=== PATIENT | female | born 1970 | race Caucasian/White ===

== ENCOUNTER → 2018-09-20 16:22 | Outpatient (CLI) | payer BC, SELFPAY ==
[2018-09-26 09:13] LABS: HPV Reflexed? NOT INDICATED
== END ==
PROVIDERS: Visit Provider Obstetrics & Gynecology
DX: Z12.4 Encounter for screening for malignant neoplasm of cervix (principal)
CPT/HCPCS: 88175; G0145

== ENCOUNTER 2023-08-08 12:33 | Emergency (ER) | payer OTHER, SELFPAY ==
[2023-08-08 12:34] VITALS: BP 132/78; PULSE 82; RESP 18; TEMP 36.3; O2SAT 99; BMI 40.2
--- NOTE | 2023-08-08 12:59 | US_ITS ---
HISTORY: RUQ PAIN, NAUSEA AND VOMITING. TECHNIQUE: Prakash scale and color doppler imaging was performed of the right upper quadrant. 108 images. COMPARISON: None. FINDINGS: LIVER: 20.9 cm in length. Increased echogenicity without focal lesion demonstrated. No intrahepatic ductal dilatation. MAIN PORTAL VEIN: Patent. COMMON BILE DUCT: 3 mm in diameter. GALLBLADDER: No gallstones. 2 mm wall thickness, within normal limits. No pericholecystic fluid. Sonographic Lora sign negative. PANCREAS: Not well visualized due to overlying bowel gas. RIGHT KIDNEY: 13.2 cm in length with a cortical thickness of 1.3 cm. No hydronephrosis or gross renal mass demonstrated. US/Gallbladder IMPRESSION: Hepatic steatosis with hepatomegaly. No sonographic evidence of cholelithiasis. Electronically Signed: Catalina Canada MD at 14:12 EDT ,
--- NOTE | 2023-08-08 12:59 | EX.ED.DYSGE1 ---
HPI <MARTY Macdonald - Last Filed: 08/08/23 18:17> History of Present Illness Chief Complaint: Abd Pain Narrative Narrative: Patient presenting today due to nausea, vomiting, and abdominal pain that she has had since . She reports that she feels dehydrated and is unable to keep any food or fluids down. She reports that she has been getting spasms in her upper abdomen, especially at night. She reports that she had a temperature of 100.3 ?F this morning that was obtained via a forehead thermometer, but otherwise has been afebrile. She denies a history of any abdominal surgery. She reports that she had one episode of a white stool on . She reports a history of fatty liver disease. She did have an ultrasound of her RUQ performed in February 2023 which showed fatty liver and no gallstones. PFSH <MARTY Macdonald - Last Filed: 08/08/23 18:17> PFSH Home Medications dicyclomine 10 mg capsule 10 mg PO TID 5 days #15 caps 08/08/23 [Rx Last Taken Unknown] ondansetron 4 mg disintegrating tablet 4 mg PO Q8H PRN PRN Nausea #10 tabs 08/08/23 [Rx Last Taken Unknown] Allergy/AdvReac Type Severity Reaction Status Date / Time bee venom protein (honey bee) Allergy Severe Anaphylaxis Verified 08/08/23 12:38 Penicillins Allergy Unknown PT UNABLE Verified 08/08/23 12:38 TO RESPOND-NEEDS F/U tetracycline Allergy Unknown NEEDS Verified 08/08/23 12:38 FOLLOW-UP Social History Smoking Status: Never smoker ROS <MARTY Macdonald - Last Filed: 08/08/23 18:17> ROS ED Constitutional Constitutional ED: Reports fever(s); Denies chills Cardiovascular Cardiovascular: Denies chest pain Respiratory/Chest Respiratory/Chest: Denies cough or dyspnea Gastrointestinal Gastrointestinal: Reports abdominal pain, nausea and vomiting; Denies diarrhea or hematemesis Genitourinary Genitourinary ED: Denies dysuria, hematuria or urinary urgency Musculoskeletal Musculoskeletal: Denies arthralgias or myalgias Integumentary Denies rash Neurologic Neurologic: Denies weakness EXAM <MARTY Macdonald - Last Filed: 08/08/23 18:17> Physical Exam Const Vital Signs: 08/08/23 12:34 08/08/23 15:30 08/08/23 16:22 Temperature 97.4 F L Temperature Source Temporal Pulse Rate 82 83 62 Respiratory Rate 18 16 15 Blood Pressure 132/78 H 119/91 H 128/75 H Blood Pressure Mean 96 100 Pulse Ox 99 98 98 Oxygen Delivery Method Room Air Room Air Positive well nourished, well developed and no apparent distress General Appearance ED: well developed HEENT Reports normocephalic and head/scalp atraumatic Mouth ED: Yes moist mucous membranes normal Eyes PERRL and EOMs intact bilaterally Neck full ROM and supple Chest Wall inspection of chest normal Resp normal respiratory effort and clear to auscultation bilaterally Cardio regular rate and regular rhythm GI non-distended and no masses GI Narrative: right upper quadrant tenderness to palpation, no rigidity or guarding, positive Lora sign, no peritoneal signs, negative McBurney's point tenderness Palpation: soft Back/Spine normal ROM and normal to inspection Extremity normal to inspection and full ROM Neuro oriented x3, CN's II-XII intact bilaterally, moves all extremities, no focal motor deficits and no sensory deficits noted Sensorium / Orientation: awake and alert Psych mental status grossly normal and thought process normal Skin no rashes or lesions noted and no wounds <Dr. Myke Castro MD - Last Filed: 08/08/23 13:10> Physical Exam Const Vital Signs: 08/08/23 12:34 08/08/23 15:30 08/08/23 16:22 Temperature 97.4 F L Temperature Source Temporal Pulse Rate 82 83 62 Respiratory Rate 18 16 15 Blood Pressure 132/78 H 119/91 H 128/75 H Blood Pressure Mean 96 100 Pulse Ox 99 98 98 Oxygen Delivery Method Room Air Room Air MDM <MARTY Macdonald - Last Filed: 08/08/23 18:17> MDM MDM Narrative Medical decision making narrative: Patient presenting today with pain across her upper abdomen that has been intermittent since as well as nausea and vomiting. She is well-appearing and in no acute distress, she is nontoxic-appearing, vitals are unremarkable. She had an episode of light stool on . She has a history of fatty liver. She had a recent ultrasound of her right upper quadrant in February 2023 which showed fatty liver, no gallstones were seen. She does have slight right upper quadrant tenderness to palpation here. RUQ ultrasound will be obtained. Labs will be obtained to rule out leukocytosis, anemia, electrolyte abnormality, hepatobiliary etiology, and UTI. She will be given IV fluids, Zofran, and Toradol. On reexamination she reports some improvement of her symptoms, she was given a p.o. challenge and was able to tolerate fluids and crackers. She reports that she feels hungry and would like to go home and eat something. Labs overall are unremarkable aside from slightly elevated liver enzymes AST 47, ALT 67. Normal total bilirubin. UA is contaminated, she is not having any urinary symptoms, elevated urinary ketones. Ultrasound shows fatty liver with hepatomegaly, no evidence of cholelithiasis. She reports that she has had 2 other episodes of similar symptoms occurring in the past year, I did give her a referral for Dr. Frank. She will be given a prescription for Zofran and Bentyl, she will be discharged home in stable condition and is comfortable with plan. Lab Data Attestation: I reviewed the patient's lab results. Labs: Laboratory Results - last 24 hr 08/08/23 08/08/23 13:05 15:35 WBC 7.9 RBC 4.93 Hgb 13.0 Hct 40.7 MCV 82.6 MCH 26.4 L MCHC 31.9 L RDW Std Deviation 42.5 RDW Coeff of Jayashree 14.2 Plt Count 428 MPV 8.4 Immature Gran % (Auto) 0.100 Neut % (Auto) 71.8 H Lymph % (Auto) 20.2 Lander % (Auto) 6.2 Eos % (Auto) 0.6 Baso % (Auto) 1.1 H Absolute Neuts (auto) 5.6 Absolute Lymphs (auto) 1.59 Nucleated RBC % 0 Sodium 138 Potassium 3.5 Chloride 106 Carbon Dioxide 26.0 Anion Gap 6 BUN 17 Creatinine 0.96 Estim Creat Clear Calc 54.83 Est GFR (MDRD) Af Amer 79 Est GFR (MDRD) Non-Af 65 BUN/Creatinine Ratio 17.7 Glucose 104 Calcium 9.1 Total Bilirubin 0.50 AST 47 H ALT 67 H Alkaline Phosphatase 65 Total Protein 8.0 Albumin 4.1 Globulin 3.9 Albumin/Globulin Ratio 1.1 Lipase 41 Urine Color Yellow Urine Clarity Cloudy Urine pH 6.0 Ur Specific [place] 1.025 Urine Protein 30 H Urine Glucose (UA) Normal Urine Ketones 150 A* Urine Occult Blood 25 H Urine Nitrite Negative Urine Bilirubin 1 H Urine Urobilinogen 1 H Ur Leukocyte Esterase 500 H Urine RBC 5-10 SEEN Urine WBC 10-25 SEEN Ur Squamous Epith Cells 0 SEEN Urine Bacteria 2+ Urine Mucus 0 SEEN Radiography Diagnostic Testing: Clinical Impression(s) from Imaging Studies Gallbladder Ultrasound 08/08/23 12:59 IMPRESSION: Hepatic steatosis with hepatomegaly. No sonographic evidence of cholelithiasis. Electronically Signed: Catalina Canada MD at 14:12 EDT , <Dr. Myke Castro MD - Last Filed: 08/08/23 13:10> [facility] Lab Data Labs: Laboratory Results - last 24 hr 08/08/23 08/08/23 13:05 15:35 WBC 7.9 RBC 4.93 Hgb 13.0 Hct 40.7 MCV 82.6 MCH 26.4 L MCHC 31.9 L RDW Std Deviation 42.5 RDW Coeff of Jayashree 14.2 Plt Count 428 MPV 8.4 Immature Gran % (Auto) 0.100 Neut % (Auto) 71.8 H Lymph % (Auto) 20.2 Lander % (Auto) 6.2 Eos % (Auto) 0.6 Baso % (Auto) 1.1 H Absolute Neuts (auto) 5.6 Absolute Lymphs (auto) 1.59 Nucleated RBC % 0 Sodium 138 Potassium 3.5 Chloride 106 Carbon Dioxide 26.0 Anion Gap 6 BUN 17 Creatinine 0.96 Estim Creat Clear Calc 54.83 Est GFR (MDRD) Af Amer 79 Est GFR (MDRD) Non-Af 65 BUN/Creatinine Ratio 17.7 Glucose 104 Calcium 9.1 Total Bilirubin 0.50 AST 47 H ALT 67 H Alkaline Phosphatase 65 Total Protein 8.0 Albumin 4.1 Globulin 3.9 Albumin/Globulin Ratio 1.1 Lipase 41 Urine Color Yellow Urine Clarity Cloudy Urine pH 6.0 Ur Specific [place] 1.025 Urine Protein 30 H Urine Glucose (UA) Normal Urine Ketones 150 A* Urine Occult Blood 25 H Urine Nitrite Negative Urine Bilirubin 1 H Urine Urobilinogen 1 H Ur Leukocyte Esterase 500 H Urine RBC 5-10 SEEN Urine WBC 10-25 SEEN Ur Squamous Epith Cells 0 SEEN Urine Bacteria 2+ Urine Mucus 0 SEEN Radiography Diagnostic Testing: Clinical Impression(s) from Imaging Studies Gallbladder Ultrasound 08/08/23 12:59 IMPRESSION: Hepatic steatosis with hepatomegaly. No sonographic evidence of cholelithiasis. Electronically Signed: Catalina Canada MD at 14:12 EDT , Treatment and Re-Evaluation Comments:: I have personally performed a face to face assessment of the patient and have reviewed the AUBRIE Note. I performed a substantive portion of the visit including all aspects of the following. My arevalo findings include: History is patient had an acholic stool, followed by upper abdominal discomfort without radiation, nausea, vomiting, now no bowel movement since not able to eat or keep anything down liquid-pollock. No fevers or chills. No jaundice or itching. No confusion. No history of any abdominal surgeries. Exam is well-appearing in no distress, tender throughout upper abdomen worse on the right equivocal Lora's. No guarding or rebound tenderness. No lower abdominal tenderness. Medical Decison Making labs including liver enzymes, ultrasound right upper quadrant, meds, fluids, reevaluate. Other additions or changes: [None] Discharge Plan Triage Chief Complaint: Abd Pain ED Midlevel Provider: Heaven Bradley ED Provider: Myke Castro Dx/Rx/DC Orders Clinical Impression: Fatty liver, Nausea & vomiting, Abdominal pain Instructions: Nonalcoholic Fatty Liver ..., ED Vomiting (Adult) Prescriptions: New ondansetron 4 mg tablet,disintegrating 4 mg PO Q8H PRN PRN (Reason: Nausea) Qty: 10 0RF dicyclomine 10 mg capsule 10 mg PO TID 5 Days Qty: 15 0RF Primary Care Provider: Connie Boss Referrals: Connie Boss MD [Primary Care Provider] - 3-5 Days Topher Frank DO [Med Staff - Active Staff] - Activity Restrictions/Additional Instructions: Please follow-up with your PCP, return for any worsening of your symptoms. Stay well-hydrated. Disposition Disposition: Home, Self Care Discharge Date/Time: 08/08/23 16:23
[2023-08-08] MEDS: Ondansetron 4 MG/2 ML Vial IV (13:09)
[2023-08-08] MEDS: 0.9% Normal Saline (1000mL) 1,000 ML 1000 ML IV (13:10)
[2023-08-08] MEDS: Ketorolac 15 MG/ML Vial IV (13:10)
[2023-08-08 13:21] LABS: Absolute Lymphocyte Count 1.59 X10^3/uL (0.83-4.51); Absolute Neutrophil Count 5.6 X10^3/uL (2.0-7.7); Basophil# 0.09 X10^3/uL; Basophil% 1.1 % (0-1); Eosinophil# 0.05 X10^3/uL; Eosinophils% 0.6 % (0-5); Hematocrit 40.7 % (37-47); Lymphocyte # 1.59 X10^3/ul (0.83-4.51); Lymphocyte % 20.2 % (19-41); Mean Corp Hgb Conc 31.9 g/dL (32-36); Mean Corpuscular Hgb 26.4 pg (27.0-32.0); Mean Corpuscular Volume 82.6 fL (81-99); Mean Platelet Vol. 8.4 fl (6.2-12.0); Monocyte# 0.49 X10^3/uL; Monocyte% 6.2 % (0-10); NRBC Flagged by Analyzer 0 % (0-5); Neutrophil # 5.63 X10^3/uL (2.7-7.7); Neutrophil % 71.8 % (47-70); Platelet Count 428 K/mm3 (150-450); RBC Distribution Width CV 14.2 % (11.6-14.6); RBC Distribution Width SD 42.5 fl (35.1-43.9); Red Blood Count 4.93 M/mm3 (4.2-5.4); White Blood Count 7.9 K/mm3 (4.4-11.0)
[2023-08-08 13:36] LABS: ALB/GLOB Ratio 1.1 RATIO (0.9-2.4); AST(SGOT) 47 U/L (15-37); Alanine Aminotransfer ALT/SGPT 67 U/L (13-56); Albumin, Serum 4.1 g/dL (3.2-5.0); Alkaline Phosphatase 65 U/L (45-117); Anion Gap 6 (5-15); BUN 17 mg/dL (7-18); BUN/Creat Ratio 17.7 RATIO (10-20); Calcium,Total 9.1 mg/dL (8.5-10.1); Chloride 106 mmol/L (98-107); Creatinine, Serum 0.96 mg/dL (0.55-1.02); EST Glomerular Filtration Rate 65 mL/min (>60); Est Glom Filt Rate - Afr Amer 79 mL/min (>60); Estimated Creatinine Clearance 54.83 ml/min; Globulin 3.9 g/dL (2.2-4.2); Glucose 104 mg/dL (74-106); Lipase 41 U/L (13-75); Potassium 3.5 mmol/L (3.5-5.1); Sodium Level 138 mmol/L (136-145)
[2023-08-08 15:30] VITALS: BP 119/91; PULSE 83; RESP 16; O2SAT 98
[2023-08-08 15:42] LABS: Color, Urine Yellow (Yellow); Glucose, Dipstick Normal (Normal); Leukocyte Esterase-Dipstick 500 /ul (Negative); Mucous, Urine 0 SEEN /hpf (<or=2+); Nitrite-Dipstick Negative (Negative); Occult Blood-Urine 25 /ul (Negative); Protein-Dipstick 30 mg/dl (Negative); Specific Gravity, Urine 1.025 (1.002-1.030); Squamous Epithelial Cells - UA 0 SEEN /hpf (5-10); Urine Clarity Cloudy (Clear); Urine Urobilinogen 1 mg/dl (Normal)
[2023-08-08 15:49] LABS: Ketone-Dipstick 150 mg/dl (Negative); Urine Bilirubin Dipstick 1 mg/dL (Negative)
[2023-08-08 16:04] LABS: White Blood Cells 10-25 SEEN /hpf (0-5)
[2023-08-08 16:05] LABS: Bacteria 2+ /hpf (None Seen); Red Blood Cells-Urine 5-10 SEEN /hpf (0-5)
[2023-08-08 16:22] VITALS: BP 128/75; PULSE 62; RESP 15; O2SAT 98
== END 2023-08-08 16:23 | disposition home or self-care (01) ==
PROVIDERS: Physician Assistant; Emergency Provider Emergency Medicine; PCP Internal Medicine; Visit Provider Emergency Medicine
DX: R10.9 Unspecified abdominal pain (principal); R11.2 Nausea with vomiting, unspecified; K76.0 Fatty (change of) liver, not elsewhere classified; Z79.899 Other long term (current) drug therapy
CPT/HCPCS: 76705; 80053; 81001; 83690; 85025; 96361; 96374; 96375; 99283; J7030; A4216; J2405

== ENCOUNTER → 2024-02-22 | Outpatient (CLI) | payer OTHER, SELFPAY ==
[2024-02-25 16:11] LABS: HPV APTIMA, High Risk Negative (Negative)
== END | disposition home or self-care (01) ==
LOC: LABSPEC 13:50
PROVIDERS: PCP Internal Medicine; Referring Provider Obstetrics & Gynecology; Visit Provider Obstetrics & Gynecology
DX: Z12.4 Encounter for screening for malignant neoplasm of cervix (principal)
CPT/HCPCS: 87624; 88175; G0145

== ENCOUNTER → 2024-03-11 | Outpatient (CLI) | payer OTHER, SELFPAY ==
--- NOTE | 2024-03-11 09:03 | BI_ITS ---
MAMMOGRAPHY - BILATERAL SCREENING REASON FOR EXAM: Female, 53 years old. Routine annual screening examination. PERTINENT HISTORY: Non-contributory. TECHNIQUE: Digital bilateral breast marija (3D mammographic acquisition) in the CC and MLO projections. 2-D mediolateral oblique (MLO) and craniocaudad (CC) views of both breasts were obtained. CAD: Full Field Digital Mammography with Computer Added Detection was performed. COMPARISON: Comparison is made with prior study dated February 20, 2016. FINDINGS: Breast Composition: The breasts are almost entirely fatty. There are no dominant masses or suspicious calcifications. No other significant abnormalities are identified. There has been no significant change since the prior study. BI/SCRN MAMM (CAD)W/MARIJA BILAT IMPRESSION: Stable bilateral screening mammogram. Yearly follow-up mammogram recommended. (A) ASSESSMENT CATEGORY: BIRADS Category 1: Negative. A letter regarding these results will be sent to the patient by the facility within 30 days. Approximately 10% of breast cancers are not detected by mammography. A normal mammogram should not delay biopsy of a clinically suspicious abnormality. [id number] Electronically Signed: Johnny Cramer MD at 10:08 EDT ,
== END | disposition home or self-care (01) ==
LOC: OPBI 09:02
PROVIDERS: PCP Internal Medicine; Referring Provider Obstetrics & Gynecology; Visit Provider Obstetrics & Gynecology
DX: Z12.31 Encounter for screening mammogram for malignant neoplasm of breast (principal)
CPT/HCPCS: 77063; 77067

== ENCOUNTER 2025-08-05 12:42 | Emergency (ER) | payer OTHER, SELFPAY ==
--- OUTSIDE RECORDS SUMMARY | 2025-08-05 11:55 | XMS RPT_ITS ---
Author Name Auto Generated Organization [facility] Care Team Providers Care Job Counselor Name Role Phone OLDER, MORENA Referring Unavailable GANTA, HUDSON Primary Care Unavailable IVANNA NICHOLSON Attending Unavailable GANTA, HUDSON Primary Care Unavailable OLDER, MORENA Referring Unavailable GANTA, HUDSON Attending Unavailable GANTA, HUDSON Primary Care Unavailable GANTA, HUDSON Referring Unavailable GANTA, HUDSON Primary Care Unavailable GANTA, HUDSON Attending Unavailable GANTA, HUDSON Primary Care Unavailable OLDER, MORENA Referring Unavailable GANTA, HUDSON Primary Care Unavailable MOHAN DE JESUS Attending Unavailable GANTA, HUDSON Primary Care Unavailable LACI MILLER Attending Unavailable GANTA, HUDSON Primary Care Unavailable OLDER, MORENA Referring Unavailable GANTA, HUDSON Primary Care Unavailable OLDER, MORENA Referring Unavailable GANTA, HUDSON Primary Care Unavailable OLDER, MORENA Referring Unavailable PROBLEMS DATE TYPE CONDITION / CODE ATTENDING STATUS [facility] 08/05/2025 Active Left upper quadr ant abdominal pain / R10.12(ICD-10) LACI MILLER Active [facility] 04/15/2025 Active Eustachian tube dysfunction, bilateral / H69.93(ICD-10) MOHAN DE JESUS Active [facility] 03/27/2025 Active Metabolic dysfunction-associated steatohepatitis (MASH) / K75.81(ICD-10) MICK HUDSON Active [facility] 03/27/2025 Active Esophagitis / K20.90(ICD-10) HUDSON BARTON Active [facility] 07/12/2019 Active BIJU (obstructive sleep apnea) / G47.33(ICD-10) GANHENRIETTA HUDSON Active [facility] 02/11/2007 Active Generalized anxi ety disorder / F41.1(ICD-10) HUDSON BARTON Active [facility] 03/27/2025 Active Screening for de pression / Z13.31(ICD-10) HUDSON BARTON Active [facility] 03/27/2025 Active Morbid obesity ( HCC) / E66.01(ICD-10) HUDSON BARTON Active [facility] 12/27/2024 Active Iron deficiency / E61.1(ICD-10) NA Active [facility] 09/26/2024 Active Dietary counseli ng / Z71.3(ICD-10) IVANNA NICHOLSON Active [facility] 09/26/2024 Active Chronic constipa tion / K59.09(ICD-10) IVANNA NICHOLSON Active [facility] 09/08/2024 Active Nausea / R11.0(ICD-10) NA Active [facility] 09/08/2024 Active Nausea and vomit ing, unspecified vomiting type / R11.2(ICD-10) NA Active [facility] 09/08/2024 Active Epigastric pain / R10.13(ICD-10) NA Active [facility] PROCEDURES No Procedure Records Found RESULTS PROGRESS Observed: 08/05/2025 12:32 PM Status: COMPLETED Source: [facility] HNO ID: [id number] Author: LACI MILLER APRN.WELDING ROBOT OPERATOR Service: ? Author Type: Nurse Practitioner Type: Progress Notes Filed: 08/05/2025 12:33 Note Text: Patient came in with complaints of left upper abdominal pain. Upon assessment patient has more severe pain in the left upper abdomen but also painful in the left lower abdomen. Patient has had diverticuli on previous exams. Patient says the pain is worse if she lays on her right side. Patient has never had this pain before. Patient denies any other associated symptoms. At this time referred to the emergency room for an evaluation due to abdominal pain. Patient agreeable will go now. will take her. TRISTIAN Observed: 08/05/2025 12:00 PM Status: COMPLETED Source: [facility] Office Visit ([facility]) RADHADUNIA ([id number]) 1970 F Date Time Provider Department 08/05/25 12:00 PM LACI MILLER During your visit today, we recorded the following information about you: Temperature Pulse Respiration Blood pressure 98.5 degrees 92/minute 20/minute 109/76 Weight Last Period 98 kg 05/23/25 Laci Miller APRN.WELDING ROBOT OPERATOR 08/05/2025 12:33 PM Signed Patient came in with complaints of left upper abdominal pain. Upon assessment patient has more severe pain in the left upper abdomen but also painful in the left lower abdomen. Patient has had diverticuli on previous exams. Patient says the pain is worse if she lays on her right side. Patient has never had this pain before. Patient denies any other associated symptoms. At this time referred to the emergency room for an evaluation due to abdominal pain. Patient agreeable will go now. will take her. Allergies As of Date: 08/05/2025 Noted Allergy Reaction SULFA (SULFONAMIDE ANTIBIOTICS) 01/03/2006 8 - GI Upset BEES 03/17/2006 PENICILLINS 01/02/2006 2 - Rash 16 - Unknown TETRACYCLINE 01/02/2006 8 - GI Upset Date Reviewed: 08/05/2025 Reviewed by: Quinton Augustine LPN - Fully Assessed Reason for Visit: Abdominal Pain [1] Cmt: LUQ pain since last evening, states having some light headiness, started last night Primary Visit Diagnosis:Left upper quadrant abdominal pain [R10.12] Prescriptions as of 08/05/2025 - omeprazole (PRILOSEC) 40 mg capsule Take 1 capsule by mouth once daily. OTC - venlafaxine ER (EFFEXOR XR) 37.5 mg 24 hr capsule Take 2 capsules by mouth once daily. - ondansetron orally disintegrating (ZOFRAN ODT) 4 mg disintegrating tablet Take 1 tablet by mouth every 6 hours as needed for nausea/vomiting. - ferrous sulfate 325 mg (65 mg iron) tablet Take 1 tablet by mouth once daily. - albuterol HFA (PROAIR HFA) 90 mcg/actuation inhaler Inhale 2 Puffs as instructed every 4 hours as needed. - CPAP Change pressures to 5-12 cm of water with humidification. Mask refitting when eligible (per patient preference) optional chin strap (if indicated) , filters, tubing, humidifier and lifetime supplies. Problem List As Of Date 08/05/2025 Noted Resolved ALLERGY SEE ALSO ALLERGIC REAC BEE STING *03/17/2006 INSOMNIA NOS [G47.00] 02/11/2007 GENERALIZED ANXIETY DIS [F41.1] 02/11/2007 Esophagitis [K20.90] 03/03/2008 ACUTE GASTRITIS W/O HEMORRHAGE [K29.00] 03/03/2008 BIJU (obstructive sleep apnea) [G47.33] 07/12/2019 Metabolic dysfunction-associated steatohepatiti*03/27/2025 Encounter Status:Closed by LACI MILLER on 08/05/25 CLYDETOUTREACH Observed: 04/18/2025 12:00 AM Status: COMPLETED Source: [facility] Patient Outreach (INTMWS) DUNIA GARCIA ([id number]) 1970 F Date Time Provider Department 04/18/25 HUDOSN BARTON INTMWS During your visit today, we recorded the following information about you: Allergies As of Date: 04/18/2025 Noted Allergy Reaction SULFA (SULFONAMIDE ANTIBIOTICS) 01/03/2006 8 - GI Upset BEES 03/17/2006 PENICILLINS 01/02/2006 2 - Rash 16 - Unknown TETRACYCLINE 01/02/2006 8 - GI Upset Date Reviewed: 04/15/2025 Reviewed by: Moahn De Jesus APRN.WELDING ROBOT OPERATOR - Fully Assessed Visit Diagnosis:Encounter for screening mammogram for breast cancer [Z12.31] Order(s):TOM SCREENING W MARIJA [[id number]] Order #: [id number] FUTURE Prescriptions as of 05/19/2025 - omeprazole (PRILOSEC) 40 mg capsule Take 1 capsule by mouth once daily. OTC - venlafaxine ER (EFFEXOR XR) 37.5 mg 24 hr capsule Take 2 capsules by mouth once daily. - ondansetron orally disintegrating (ZOFRAN ODT) 4 mg disintegrating tablet Take 1 tablet by mouth every 6 hours as needed for nausea/vomiting. - ferrous sulfate 325 mg (65 mg iron) tablet Take 1 tablet by mouth once daily. - albuterol HFA (PROAIR HFA) 90 mcg/actuation inhaler Inhale 2 Puffs as instructed every 4 hours as needed. - CPAP Change pressures to 5-12 cm of water with humidification. Mask refitting when eligible (per patient preference) optional chin strap (if indicated) , filters, tubing, humidifier and lifetime supplies. Problem List As Of Date 04/18/2025 Noted Resolved ALLERGY SEE ALSO ALLERGIC REAC BEE STING *03/17/2006 INSOMNIA NOS [G47.00] 02/11/2007 GENERALIZED ANXIETY DIS [F41.1] 02/11/2007 Esophagitis [K20.90] 03/03/2008 ACUTE GASTRITIS W/O HEMORRHAGE [K29.00] 03/03/2008 BIJU (obstructive sleep apnea) [G47.33] 07/12/2019 Metabolic dysfunction-associated steatohepatiti*03/27/2025 Encounter Status:Closed by JOSE CRUZ HARRIS on 05/19/25 PROGRESS Observed: 04/15/2025 12:39 PM Status: COMPLETED Source: [facility] HNO ID: [id number] Author: MOHAN DE JESUS APRN.WELDING ROBOT OPERATOR Service: ? Author Type: Nurse Practitioner Type: Progress Notes Filed: 04/15/2025 12:42 Note Text: This note was created using [employer]. Subjective Dunia Garcia is a 54 year old female. HPI Patient complains of 4 days of generalized nasal congestion and a sensation of plugged ears and decreased hearing. She otherwise denies any fever or cough. Denies any recent water exposure. Review of Systems As above Objective BP 119/81 Pulse 91 Temp 36.5 ?C (97.7 ?F) Resp 18 Wt 102 kg (224 lb 13.9 oz) LMP 10/17/2024 (Approximate) SpO2 99% BMI 41.13 kg/m? Physical Exam Vitals and nursing note reviewed. Constitutional: General: She is not in acute distress. Appearance: Normal appearance. She is not ill-appearing. HENT: Head: Normocephalic. Right Ear: Tympanic membrane and ear canal normal. Left Ear: Tympanic membrane and ear canal normal. Mouth/Throat: Mouth: Mucous membranes are moist. Eyes: Conjunctiva/sclera: Conjunctivae normal. Cardiovascular: Rate and Rhythm: Normal rate and regular rhythm. Pulmonary: Effort: Pulmonary effort is normal. Breath sounds: Normal breath sounds. Musculoskeletal: General: Normal range of motion. Cervical back: Normal range of motion. Skin: General: Skin is warm and dry. Neurological: General: No focal deficit present. Mental Status: She is alert. Psychiatric: Mood and Affect: Mood normal. Behavior: Behavior normal. Assessment and Plan ASSESSMENT/PLAN: 1. Eustachian tube dysfunction, bilateral - ICD9: 381.81, ICD10: H69.93 No sign of otitis media or externa noted on exam. Discussed with patient that symptoms seem more consistent with bilateral eustachian tube dysfunction. Due to some chronic eye condition she is unable to use Flonase and/or prednisone. She will continue to use her home antihistamine. Discussed with her that symptoms may last for another 2-7 days but should resolve on their own. Mohan De Jesus APRN.CNP CNOV Observed: 04/15/2025 12:15 PM Status: COMPLETED Source: [facility] Office Visit (WSTR) DUNIA GARCIA ([id number]) 1970 F Date Time Provider Department 04/15/25 12:15 PM MOHAN DE JESUS During your visit today, we recorded the following information about you: Temperature Pulse Respiration Blood pressure 97.7 degrees 91/minute 18/minute 119/81 Weight 102 kg Mohan De Jesus APRN.CNP 04/15/2025 12:42 PM Signed This note was created using [employer]. Subjective Dunia Garcia is a 54 year old female. HPI Patient complains of 4 days of generalized nasal congestion and a sensation of plugged ears and decreased hearing. She otherwise denies any fever or cough. Denies any recent water exposure. Review of Systems As above Objective BP 119/81 Pulse 91 Temp 36.5 ?C (97.7 ?F) Resp 18 Wt 102 kg (224 lb 13.9 oz) LMP 10/17/2024 (Approximate) SpO2 99% BMI 41.13 kg/m? Physical Exam Vitals and nursing note reviewed. Constitutional: General: She is not in acute distress. Appearance: Normal appearance. She is not ill-appearing. HENT: Head: Normocephalic. Right Ear: Tympanic membrane and ear canal normal. Left Ear: Tympanic membrane and ear canal normal. Mouth/Throat: Mouth: Mucous membranes are moist. Eyes: Conjunctiva/sclera: Conjunctivae normal. Cardiovascular: Rate and Rhythm: Normal rate and regular rhythm. Pulmonary: Effort: Pulmonary effort is normal. Breath sounds: Normal breath sounds. Musculoskeletal: General: Normal range of motion. Cervical back: Normal range of motion. Skin: General: Skin is warm and dry. Neurological: General: No focal deficit present. Mental Status: She is alert. Psychiatric: Mood and Affect: Mood normal. Behavior: Behavior normal. Assessment and Plan ASSESSMENT/PLAN: 1. Eustachian tube dysfunction, bilateral - ICD9: 381.81, ICD10: H69.93 No sign of otitis media or externa noted on exam. Discussed with patient that symptoms seem more consistent with bilateral eustachian tube dysfunction. Due to some chronic eye condition she is unable to use Flonase and/or prednisone. She will continue to use her home antihistamine. Discussed with her that symptoms may last for another 2-7 days but should resolve on their own. Mohan De Jesus APRN.WELDING ROBOT OPERATOR Allergies As of Date: 04/15/2025 Noted Allergy Reaction SULFA (SULFONAMIDE ANTIBIOTICS) 01/03/2006 8 - GI Upset BEES 03/17/2006 PENICILLINS 01/02/2006 2 - Rash 16 - Unknown TETRACYCLINE 01/02/2006 8 - GI Upset Date Reviewed: 04/15/2025 Reviewed by: Mohan De Jesus APRN.WELDING ROBOT OPERATOR - Fully Assessed Reason for Visit: Earache [243] Cmt: Entered by patient Ear Problem [38] Cmt: Bilateral pain and muffled x4 days, ST and congestion, fever on Weds Primary Visit Diagnosis:Eustachian tube dysfunction, bilateral [H69.93] Prescriptions as of 04/15/2025 - omeprazole (PRILOSEC) 40 mg capsule Take 1 capsule by mouth once daily. OTC - venlafaxine ER (EFFEXOR XR) 37.5 mg 24 hr capsule Take 2 capsules by mouth once daily. - ondansetron orally disintegrating (ZOFRAN ODT) 4 mg disintegrating tablet Take 1 tablet by mouth every 6 hours as needed for nausea/vomiting. - ferrous sulfate 325 mg (65 mg iron) tablet Take 1 tablet by mouth once daily. - albuterol HFA (PROAIR HFA) 90 mcg/actuation inhaler Inhale 2 Puffs as instructed every 4 hours as needed. - CPAP Change pressures to 5-12 cm of water with humidification. Mask refitting when eligible (per patient preference) optional chin strap (if indicated) , filters, tubing, humidifier and lifetime supplies. Problem List As Of Date 04/15/2025 Noted Resolved ALLERGY SEE ALSO ALLERGIC REAC BEE STING *03/17/2006 INSOMNIA NOS [G47.00] 02/11/2007 GENERALIZED ANXIETY DIS [F41.1] 02/11/2007 Esophagitis [K20.90] 03/03/2008 ACUTE GASTRITIS W/O HEMORRHAGE [K29.00] 03/03/2008 BIJU (obstructive sleep apnea) [G47.33] 07/12/2019 Metabolic dysfunction-associated steatohepatiti*03/27/2025 Encounter Status:Closed by MOHAN DE JESUS on 04/15/25 PROGRESS Observed: 03/27/2025 6:36 PM Status: COMPLETED Source: [facility] ID: [id number] Author: HUDSON BARTON MD Service: ? Author Type: Physician Type: Progress Notes Filed: 03/27/2025 18:37 Note Text: Reason for Visit Annual physical HPI Dunia is a 54-year-old female with a history of anxiety, depression, and MULLINS, presenting for follow-up. Dunia reports significant improvement in her mental health since discontinuing Effexor 3 weeks ago. She describes the tapering process as challenging, noting severe headaches and gastrointestinal symptoms, including nausea and emesis, during the withdrawal period. She managed the taper by gradually reducing the dosage over approximately 3 months, extending a 1-month prescription to last the entire period. She denies current symptoms of depression or anxiety and reports feeling a lot better since discontinuing the medication. She also notes the resolution of abdominal pain and gastrointestinal symptoms, which she attributes to the medication. Dunia is currently taking omeprazole and expresses a desire to discontinue it in the future. She has been focusing on dietary modifications and plans to address the medication discontinuation gradually. She has a history of sleep apnea and uses a CPAP machine, though not consistently. She reports emotional distress and panic attacks related to memories of her mother's , which sometimes interfere with her ability to use the CPAP machine. She is working on improving her adherence to CPAP therapy. Dunia acknowledges a recent increase in BMI and attributes it to a sedentary lifestyle. She has initiated a 40-day walking challenge with a friend, aiming to walk 1 mile daily while engaging in scripture reading. She also plans to increase her physical activity by swimming during the summer. She has a history of MULLINS and expresses interest in monitoring her liver function tests now that she has discontinued Effexor. She reports previous hospitalizations for abdominal pain, which she initially suspected to be related to her gallbladder but now believes were due to the medication. Social History Tobacco Use Smoking status: Never Smokeless tobacco: Never Substance Use Topics Alcohol use: Yes Comment: very occasional Drug use: No Past medical history, appointments, medications, allergies reviewed. Pertinent Lab/Diagnostic Studies are reviewed and discussed today Current Outpatient Medications: omeprazole (PRILOSEC) 40 mg capsule ondansetron orally disintegrating (ZOFRAN ODT) 4 mg disintegrating tablet CPAP venlafaxine ER (EFFEXOR XR) 37.5 mg 24 hr capsule ferrous sulfate 325 mg (65 mg iron) tablet albuterol HFA (PROAIR HFA) 90 mcg/actuation inhaler Health Maintenance DTaP,Tdap,Td Vaccine(1 - Tdap) Hepatitis B Vaccine(1 of 3 - 19+ 3-dose series) Shingrix Vaccine(1 of 2) Pneumococcal Vaccine: 50+(1 of 1 - PCV) Covid-19 Vaccine(1 - 4- season) Mammogram Screening@ Review Of Systems Constitutional: (+) weight gain Gastrointestinal: (-) abdominal pain, (-) nausea, (-) vomiting Musculoskeletal: (+) generalized aches Psychiatric: (+) anxiety, (+) panic attacks, (-) depression Physical Exam BP 117/84 Pulse 85 Resp 16 Wt 106.3 kg (234 lb 6.4 oz) LMP 10/17/2024 (Approximate) SpO2 100% BMI 42.87 kg/m? GENERAL: NAD, alert and oriented. SKIN: Unremarkable, no rash or skin lesions. HEAD: Normocephalic. EYES: PERRLA, EOMI, conjunctiva clear. EARS: External ears normal, canals clear, TM's normal. NOSE/SINUSES: Nares normal. Septum midline. OROPHARYNX: Lips, mucosa, and tongue normal, good dentition. No oral lesions noted. NECK: Supple, no lymphadenopathy, normal thyroid, no carotid bruits. LUNGS: Clear to auscultation bilaterally, no wheezes/rhonchi/rales. HEART: Regular rate and rhythm, no murmurs. No ectopy. EXTREMITIES: Normal, no deformities, no skin discoloration, no edema. NEURO: Awake, alert and oriented x3, cranial nerves II-XII grossly intact, normal gait, no involuntary motions. Imaging: - FibroScan: No abnormalities identified Assessment and Plan 1. Metabolic dysfunction-associated steatohepatitis (MASH) (K75.81) Previously diagnosed with MASH; recent FibroScan results were stable. - Ordered liver function tests to assess current status post-Effexor discontinuation. - Referral to hepatology for further management. 2. BIJU (obstructive sleep apnea) (G47.33) Uses CPAP machine inconsistently due to emotional triggers related to mother's passing. - Encouraged regular use of CPAP machine. - Discussed emotional support and coping strategies. 3. Generalized anxiety disorder (F41.1) Previously on Effexor, now discontinued for 3 weeks. No current symptoms of anxiety or depression. - Monitor for any recurrence of anxiety symptoms. 4. Esophagitis (K20.90) Currently managed with omeprazole; experiencing improvement in gastrointestinal symptoms post-Effexor discontinuation. - Discussed gradual tapering of omeprazole. - Recommended dietary modifications and use of Pepcid as needed. 5. Screening for depression (Z13.31) No current symptoms of depression; successfully managed Mother's Day without medication. - Continue monitoring mood and emotional well-being. 6. Morbid obesity (HCC) (E66.01) Increased BMI since last visit; limited physical activity. - Initiated a 40-day walking challenge to increase physical activity. - Discussed benefits of aquatic exercise. Voice recognition software was used to compose this office note. Please excuse any unintended typographical errors. Recording using ambient Smart Cube software for draft documentation of the visit was discussed with the patient/authorized sales representative printing supplies; all questions welcomed and answered. Patient/authorized sales representative printing supplies agreed to proceed Hudson Barton MD CNOV Observed: 03/27/2025 1:40 PM Status: COMPLETED Source: [facility] Office Visit (INT[facility]) DUNIA GARCIA ([id number]) 1970 F Date Time Provider Department 03/27/25 1:40 PM HUDSON BARTON INTMWS During your visit today, we recorded the following information about you: Pulse Respiration Blood pressure Weight 85/minute 16/minute 117/84 106.3 kg Hudson Barton MD 03/27/2025 2:19 PM Signed We discussed your progress with anxiety and depression: - You successfully tapered off Effexor over three months using a gradual reduction method. Congratulations on completing this process. - You reported significant improvement in symptoms, including no longer experiencing nausea, vomiting, or stomach pain. - You are not currently experiencing depression and feel emotionally stable despite recent challenges. - No further treatment for anxiety or depression is needed at this time. We discussed your use of omeprazole: - You plan to work on discontinuing omeprazole in the future. - In the meantime, you may use Pepcid as needed for symptom relief. - Overhauling your diet may also help reduce symptoms. Continue making dietary improvements as you are able. We discussed your sleep apnea: - You are using your CPAP machine but noted occasional difficulty due to emotional triggers related to your mother?s passing. - Continue using the CPAP machine nightly to manage your sleep apnea. If emotional challenges persist, consider discussing this further with me or a counselor. We discussed your fatty liver ([facility]): - You requested updated blood work to check your liver function now that you are off Effexor. I recommend waiting another 1-2 weeks before completing the labs to ensure the medication is fully out of your system. - I will also consider referring you to hepatology for further evaluation if needed. We discussed your weight and exercise: - You acknowledged recent weight gain and are working on increasing your physical activity. - You and your girlfriend are starting a 40-day walking challenge, which includes walking one mile daily and scripture study. This is a great step toward improving your overall health. - You are also planning to use a swimming pool this summer to engage in low-impact exercise, which can help reduce joint stress. Next steps: - Complete blood work in 1-2 weeks to assess liver function. - Continue using your CPAP machine nightly and reach out if emotional challenges interfere with its use. - Gradually work on discontinuing omeprazole with dietary changes and Pepcid as needed. - Maintain your walking challenge and explore swimming as a form of exercise this summer. - Follow up with me if you experience any new or worsening symptoms or need additional support. Hudson Barton MD 03/27/2025 6:37 PM Signed Reason for Visit Annual physical HPI Dunia is a 54-year-old female with a history of anxiety, depression, and MULLINS, presenting for follow-up. Dunia reports significant improvement in her mental health since discontinuing Effexor 3 weeks ago. She describes the tapering process as challenging, noting severe headaches and gastrointestinal symptoms, including nausea and emesis, during the withdrawal period. She managed the taper by gradually reducing the dosage over approximately 3 months, extending a 1-month prescription to last the entire period. She denies current symptoms of depression or anxiety and reports feeling a lot better since discontinuing the medication. She also notes the resolution of abdominal pain and gastrointestinal symptoms, which she attributes to the medication. Dunia is currently taking omeprazole and expresses a desire to discontinue it in the future. She has been focusing on dietary modifications and plans to address the medication discontinuation gradually. She has a history of sleep apnea and uses a CPAP machine, though not consistently. She reports emotional distress and panic attacks related to memories of her mother's , which sometimes interfere with her ability to use the CPAP machine. She is working on improving her adherence to CPAP therapy. Dunia acknowledges a recent increase in BMI and attributes it to a sedentary lifestyle. She has initiated a 40-day walking challenge with a friend, aiming to walk 1 mile daily while engaging in scripture reading. She also plans to increase her physical activity by swimming during the summer. She has a history of MULLINS and expresses interest in monitoring her liver function tests now that she has discontinued Effexor. She reports previous hospitalizations for abdominal pain, which she initially suspected to be related to her gallbladder but now believes were due to the medication. Social History Tobacco Use Smoking status: Never Smokeless tobacco: Never Substance Use Topics Alcohol use: Yes Comment: very occasional Drug use: No Past medical history, appointments, medications, allergies reviewed. Pertinent Lab/Diagnostic Studies are reviewed and discussed today Current Outpatient Medications: omeprazole (PRILOSEC) 40 mg capsule ondansetron orally disintegrating (ZOFRAN ODT) 4 mg disintegrating tablet CPAP venlafaxine ER (EFFEXOR XR) 37.5 mg 24 hr capsule ferrous sulfate 325 mg (65 mg iron) tablet albuterol HFA (PROAIR HFA) 90 mcg/actuation inhaler Health Maintenance DTaP,Tdap,Td Vaccine(1 - Tdap) Hepatitis B Vaccine(1 of 3 - 19+ 3-dose series) Shingrix Vaccine(1 of 2) Pneumococcal Vaccine: 50+(1 of 1 - PCV) Covid-19 Vaccine(2023-25 season) Mammogram Screening@ Review Of Systems Constitutional: (+) weight gain Gastrointestinal: (-) abdominal pain, (-) nausea, (-) vomiting Musculoskeletal: (+) generalized aches Psychiatric: (+) anxiety, (+) panic attacks, (-) depression Physical Exam BP 117/84 Pulse 85 Resp 16 Wt 106.3 kg (234 lb 6.4 oz) LMP 10/17/2024 (Approximate) SpO2 100% BMI 42.87 kg/m? GENERAL: NAD, alert and oriented. SKIN: Unremarkable, no rash or skin lesions. HEAD: Normocephalic. EYES: PERRLA, EOMI, conjunctiva clear. EARS: External ears normal, canals clear, TM's normal. NOSE/SINUSES: Nares normal. Septum midline. OROPHARYNX: Lips, mucosa, and tongue normal, good dentition. No oral lesions noted. NECK: Supple, no lymphadenopathy, normal thyroid, no carotid bruits. LUNGS: Clear to auscultation bilaterally, no wheezes/rhonchi/rales. HEART: Regular rate and rhythm, no murmurs. No ectopy. EXTREMITIES: Normal, no deformities, no skin discoloration, no edema. NEURO: Awake, alert and oriented x3, cranial nerves II-XII grossly intact, normal gait, no involuntary motions. Imaging: - FibroScan: No abnormalities identified Assessment and Plan 1. Metabolic dysfunction-associated steatohepatitis (MASH) (K75.81) Previously diagnosed with MASH; recent FibroScan results were stable. - Ordered liver function tests to assess current status post-Effexor discontinuation. - Referral to hepatology for further management. 2. BIJU (obstructive sleep apnea) (G47.33) Uses CPAP machine inconsistently due to emotional triggers related to mother's passing. - Encouraged regular use of CPAP machine. - Discussed emotional support and coping strategies. 3. Generalized anxiety disorder (F41.1) Previously on Effexor, now discontinued for 3 weeks. No current symptoms of anxiety or depression. - Monitor for any recurrence of anxiety symptoms. 4. Esophagitis (K20.90) Currently managed with omeprazole; experiencing improvement in gastrointestinal symptoms post-Effexor discontinuation. - Discussed gradual tapering of omeprazole. - Recommended dietary modifications and use of Pepcid as needed. 5. Screening for depression (Z13.31) No current symptoms of depression; successfully managed Mother's Day without medication. - Continue monitoring mood and emotional well-being. 6. Morbid obesity (HCC) (E66.01) Increased BMI since last visit; limited physical activity. - Initiated a 40-day walking challenge to increase physical activity. - Discussed benefits of aquatic exercise. Voice recognition software was used to compose this office note. Please excuse any unintended typographical errors. Recording using [employer] software for draft documentation of the visit was discussed with the patient/authorized sales representative printing supplies; all questions welcomed and answered. Patient/authorized sales representative printing supplies agreed to proceed Hudson Barton MD Referring Provider: MORENA SHAHID [[id number]] Allergies As of Date: 03/27/2025 Noted Allergy Reaction SULFA (SULFONAMIDE ANTIBIOTICS) 01/03/2006 8 - GI Upset BEES 03/17/2006 PENICILLINS 01/02/2006 2 - Rash 16 - Unknown TETRACYCLINE 01/02/2006 8 - GI Upset Date Reviewed: 03/27/2025 Reviewed by: Leah Cabrera MA - Fully Assessed Reason for Visit: F/U 6 Month [444] Primary Visit Diagnosis:Metabolic dysfunction-associated steatohepatitis (MASH) [K75.81] Other Visit Diagnoses:BIJU (obstructive sleep apnea) [G47.33] Generalized anxiety disorder [F41.1] Esophagitis [K20.90] Screening for depression [Z13.31] Morbid obesity (HCC) [E66.01] Order(s):DEPRESSION SCREENING [5469207] Order #: [id number]: 1 COMPREHENSIVE METABOLIC PANEL [SQCMP] Order #: [id number] FUTURE Prescriptions as of 03/27/2025 - omeprazole (PRILOSEC) 40 mg capsule Take 1 capsule by mouth once daily. OTC - venlafaxine ER (EFFEXOR XR) 37.5 mg 24 hr capsule Take 2 capsules by mouth once daily. - ondansetron orally disintegrating (ZOFRAN ODT) 4 mg disintegrating tablet Take 1 tablet by mouth every 6 hours as needed for nausea/vomiting. - ferrous sulfate 325 mg (65 mg iron) tablet Take 1 tablet by mouth once daily. - albuterol HFA (PROAIR HFA) 90 mcg/actuation inhaler Inhale 2 Puffs as instructed every 4 hours as needed. - CPAP Change pressures to 5-12 cm of water with humidification. Mask refitting when eligible (per patient preference) optional chin strap (if indicated) , filters, tubing, humidifier and lifetime supplies. Problem List As Of Date 03/27/2025 Noted Resolved ALLERGY SEE ALSO ALLERGIC REAC BEE STING *03/17/2006 INSOMNIA NOS [G47.00] 02/11/2007 GENERALIZED ANXIETY DIS [F41.1] 02/11/2007 Esophagitis [K20.90] 03/03/2008 ACUTE GASTRITIS W/O HEMORRHAGE [K29.00] 03/03/2008 BIJU (obstructive sleep apnea) [G47.33] 07/12/2019 Metabolic dysfunction-associated steatohepatiti*03/27/2025 Other instructions from your clinician: We discussed your progress with anxiety and depression: - You successfully tapered off Effexor over three months using a gradual reduction method. Congratulations on completing this process. - You reported significant improvement in symptoms, including no longer experiencing nausea, vomiting, or stomach pain. - You are not currently experiencing depression and feel emotionally stable despite recent challenges. - No further treatment for anxiety or depression is needed at this time. We discussed your use of omeprazole: - You plan to work on discontinuing omeprazole in the future. - In the meantime, you may use Pepcid as needed for symptom relief. - Overhauling your diet may also help reduce symptoms. Continue making dietary improvements as you are able. We discussed your sleep apnea: - You are using your CPAP machine but noted occasional difficulty due to emotional triggers related to your mother?s passing. - Continue using the CPAP machine nightly to manage your sleep apnea. If emotional challenges persist, consider discussing this further with me or a counselor. We discussed your fatty liver ([facility]): - You requested updated blood work to check your liver function now that you are off Effexor. I recommend waiting another 1-2 weeks before completing the labs to ensure the medication is fully out of your system. - I will also consider referring you to hepatology for further evaluation if needed. We discussed your weight and exercise: - You acknowledged recent weight gain and are working on increasing your physical activity. - You and your girlfriend are starting a 40-day walking challenge, which includes walking one mile daily and scripture study. This is a great step toward improving your overall health. - You are also planning to use a swimming pool this summer to engage in low-impact exercise, which can help reduce joint stress. Next steps: - Complete blood work in 1-2 weeks to assess liver function. - Continue using your CPAP machine nightly and reach out if emotional challenges interfere with its use. - Gradually work on discontinuing omeprazole with dietary changes and Pepcid as needed. - Maintain your walking challenge and explore swimming as a form of exercise this summer. - Follow up with me if you experience any new or worsening symptoms or need additional support. Level of Service: WELLNESS EXAMS EST 40-64 YRS [07749] Encounter Status:Closed by HUDSON BARTON on 03/27/25 IRON+TIBC PNL SERPL Collected: 12/27/2024 1:[address] atus: F Source: [facility] Order Comment: Specimen Type : BLOOD SPECIMEN Ordering Facility: [facility] Address: [address] [place] [address] TYPE CODE TESTS RESULT OUT OF RANGE REFERENCE UNITS LAB 2498-4(LOINC) Iron SerPl-mCnc 57 41-186 ug/dL LAB 2500-7(LOINC) TIBC SerPl-mCnc 418 High 232-386 ug/dL LAB 14346-1(LOINC) Iron/TIBC SerPl-sRto 13.6 Low 20.0-55.0 % Performed By: #### 2276-4, 5 0190-8 #### [facility] CLIA [id number] [address] [place] [address] [place] FERRITIN SERPL-MCNC Collected: 12/27/19 1:08 PM Status: F Source: [facility] Order Comment: Specimen Type : BLOOD SPECIMEN Ordering Facility: [facility] Address: [address] [place] [address] TYPE CODE TESTS RESULT OUT OF RANGE REFERENCE UNITS LAB 2276-4([facility]) Ferritin SerPl-mCnc 19.7 14.7-205.1 ng/mL Performed By: #### 2276-4, 5 0190-8 #### [facility] CLIA [id number] [address] [place] [address] [place] CBC W AUTO DIFF BLD Collected: 12/27/2024 1:[address] atus: F Source: [facility] Order Comment: Specimen Type : BLOOD SPECIMEN Ordering Facility: [facility] Address: [address] [place] [address] TYPE CODE TESTS RESULT OUT OF RANGE REFERENCE UNITS LAB 6690-2(LOINC) WBC # Bld Auto 8.63 3.70-11.00 k/uL LAB 789-8(LOINC) RBC # Bld Auto 4.66 3.90-5.20 m/ uL LAB 718-7(LOINC) Hgb Bld-mCnc 12.4 11.5-15.5 g/dL LAB 4544-3(LOINC) Hct VFr Bld Auto 38.7 36.0-46.0 % LAB 787-2([facility]) MCV RBC Auto 83.0 80.0-100.0 fL LAB 785-6([facility]) MCH RBC Qn Auto 26.6 26.0-34.0 p g LAB 786-4([facility]) MCHC RBC Auto-mCnc 32.0 30.5-36.0 g/dL LAB 08303-7([facility]) RDW RBC-Rto 14.5 11.5-15.0 % LAB 777-3([facility]) Platelet # Bld Auto 474 High 150-400 k/uL LAB 63415-7([facility]) PMV Bld Auto 9.4 9.0-12.7 fL LAB 770-8([facility]) Neutrophils/leuk NFr Bld Auto 53.3 % LAB 751-8([facility]) Neutrophils # Bld Auto 4.60 1.45-7.50 k/uL LAB 736-9([facility]) Lymphocytes/leuk NFr Bld Auto 30.8 % LAB 731-0([facility]) Lymphocytes # Bld Auto 2.66 1.00-4.00 k/uL LAB 5905-5([facility]) Monocytes/leuk NFr Bld Auto 8.5 % LAB 742-7([facility]) Monocytes # Bld Auto 0.73 <0.87 k/uL LAB 713-8([facility]) Eosinophil/leuk NFr Bld Auto 5.7 % LAB 711-2([facility]) Eosinophil # Bld Auto 0.49 High <0.46 k/uL LAB 706-2([facility]) Basophils/leuk NFr Bld Auto 1.6 % LAB 704-7([facility]) Basophils # Bld Auto 0.14 High <0.11 k/uL LAB 72593-1([facility]) Imm Granulocytes/jordan k NFr Bld Auto 0.1 % LAB 40414-3([facility]) Imm Granulocytes # Bld Auto <0.03 <0.10 k/uL LAB 70643-2([facility]) nRBC/100 WBC Bld-Rto 0.0 /100 WBC LAB 771-6([facility]) nRBC # Bld Auto <0.01 <0.01 k/u L LAB 68793-7([facility]) Differential method Bld Auto Performed By: #### 40234-1 # ### [facility] CLIA [id number] [address] [place] [address] [place] PROGRESS Observed: 12/27/2024 12:33 PM Status: COMPLETED Source: [facility] HNO ID: [id number] Author: HUDSON BARTON MD Service: ? Author Type: Physician Type: Progress Notes Filed: 12/27/2024 13:15 Note Text: Reason for Visit Dunia Garcia is a 54 year oldfemale who presents here Patient presents with: Medication Problem: would like to go off Effexor. Orders: would like labs ordered to check hemoglobin levels Health Maintenance Depression Screening Pneumococcal Vaccine: 50+(1 of - PCV) Influenza Vaccine(1) Covid-19 Vaccine( season) Mammogram Screening HPI Insomnia, sleep apnea This is a 54-year-old woman with a past medical history of, sleep apnea, insomnia and anxiety . Placed on Effexor which did help her anxiety and depression but wants to discuss weaning off of it Wants to discuss weaning off effexor, because if she misses medication for a day she becomes sick to her stomach, gets abdominal pain. They have been on vacation before and forgot to take medication and she was miserable. The medication helped her with the anxiety and depression, she feels she is at a much better place and wants to wean off. The patient was evaluated for this abdominal pain extensively over the last year and that she was found to have no issues with the gallbladder but was found to have fatty liver. We discussed weight loss with regards to this. FibroScan showed 7.2 which is moderate scarring and she may benefit from the new drug that has been out so we will discuss that in the future. No problem-specific Assessment AND Plan notes found for this encounter. PAST MEDICAL HISTORY Diagnosis Date Acute gastritis without mention of hemorrhage Anxiety state, unspecified Esophagitis, unspecified Seasonal allergies Sleep apnea Snoring PAST SURGICAL HISTORY Procedure Laterality Date COLONOSCOPY 08/26/2023 repeat 10 years EGD 08/26/2023 EGD TRANSORAL BIOPSY SINGLE/MULTIPLE 03/03/2008 ESOPHAGOGASTRODUODENOSCOPY TRANSORAL DIAGNOSTIC 02/02/2017 EGD PAST SURGICAL HISTORY OF 2007 frx left hand, tripped and fell REMOVAL OF IMPACTED TOOTH - COMPLETELY BONY 1997 BOTH WISDOM TEETH FAMILY HISTORY Problem Relation Age of Onset Cancer Mother THYROID other (Other) Mother sleep apnea Hypertension Father other (Other) Father BIJU other (cirrhosis) Father other (fatty liver disease) Father ADD/ADHD Son ADD/ADHD Son Social History Tobacco Use Smoking status: Never Smokeless tobacco: Never Substance Use Topics Alcohol use: Yes Comment: very occasional Drug use: No Past medical history, appointments, medications, allergies reviewed. Pertinent Lab/Diagnostic Studies are reviewed and discussed today Current Outpatient Medications: omeprazole (PRILOSEC) 40 mg capsule ondansetron orally disintegrating (ZOFRAN ODT) 4 mg disintegrating tablet venlafaxine ER (EFFEXOR XR) 75 mg 24 hr capsule ferrous sulfate 325 mg (65 mg iron) tablet albuterol HFA (PROAIR HFA) 90 mcg/actuation inhaler CPAP Review of Systems CONSTITUTIONAL: No fevers, chills night sweats, unintended weight loss CARDIOVASCULAR: No chest pain, dyspnea, palpitations, orthopnea, PND, ankle edema. PULM: No dyspnea, unexplained cough. GI: No dysphagia/odynophagia, problematic reflux, constipation, diarrhea, changes in stool habits, hematochezia, melena. : No new urinary complaints, including dysuria, gross hematuria or pyuria. NEURO: No new balance problems, peripheral weakness/paresthesias or numbness of concern. Physical Exam BP 124/78 Pulse 82 LMP 10/17/2024 (Approximate) SpO2 98% General appearance: Well appearing, alert, in no acute distress, well nourished. Skin: Skin color, texture, turgor normal, no suspicious rashes or lesions Head: Normocephalic, no masses, lesions, tenderness or abnormalities Eyes: Anicteric sclera. Pupils are equally round and reactive to light. Extraocular movements are intact. Lungs:Normal breathing efforts, Lungs clear to auscultation. No wheezing, rhonchi, rales Heart: RRR without murmur, gallop, or rubs. Extremities: No deformities, edema, skin discoloration, clubbing or cyanosis. Good capillary refill. ASSESSMENT/PLAN: 1. Anxiety and depression - ICD9: 300.00, 311, ICD10: F41.9, F32.A (primary diagnosis) Take 1 and half capsules of it for 2 weeks followed by 1 capsule for 2 weeks and half a capsule for 2 weeks. - VENLAFAXINE ER 37.5 MG CAPSULE,EXTENDED RELEASE 24 HR 2. Iron deficiency - ICD9: 280.9, ICD10: E61.1 Recheck the level - COMPLETE BLOOD COUNT AND DIFFERENTIAL - IRON AND TIBC - FERRITIN - COMPLETE BLOOD COUNT 3. Thrombocythemia - ICD9: 238.71, ICD10: D75.839 - COMPLETE BLOOD COUNT. 4. Metabolic dysfunction-associated steatohepatitis (MASH) - ICD9: 571.8, ICD10: K75.81 The patient has moderate fibrosis, we will send to hepatology in the future. Hudson Barton MD Voice recognition software was used to compose this office note. Please excuse any unintended typographical errors. CNOV Observed: 12/27/2024 12:00 PM Status: COMPLETED Source: [facility] Office Visit (INTMWS) DUNIA GARCIA ([id number]) 1970 F Date Time Provider Department 12/27/24 12:00 PM HUDSON BARTON INTMWS During your visit today, we recorded the following information about you: Pulse Blood pressure Last Period 82/minute 124/78 10/17/24 Hudson Barton MD 12/27/2024 1:15 PM Signed Reason for Visit Duniamariel Sotosendytarun is a 54 year oldfemale who presents here Patient presents with: Medication Problem: would like to go off Effexor. Orders: would like labs ordered to check hemoglobin levels Health Maintenance Depression Screening Pneumococcal Vaccine: 50+(1 of - PCV) Influenza Vaccine(1) Covid-19 Vaccine(2023-) Mammogram Screening HPI Insomnia, sleep apnea This is a 54-year-old woman with a past medical history of, sleep apnea, insomnia and anxiety . Placed on Effexor which did help her anxiety and depression but wants to discuss weaning off of it Wants to discuss weaning off effexor, because if she misses medication for a day she becomes sick to her stomach, gets abdominal pain. They have been on vacation before and forgot to take medication and she was miserable. The medication helped her with the anxiety and depression, she feels she is at a much better place and wants to wean off. The patient was evaluated for this abdominal pain extensively over the last year and that she was found to have no issues with the gallbladder but was found to have fatty liver. We discussed weight loss with regards to this. FibroScan showed 7.2 which is moderate scarring and she may benefit from the new drug that has been out so we will discuss that in the future. No problem-specific Assessment AND Plan notes found for this encounter. PAST MEDICAL HISTORY Diagnosis Date Acute gastritis without mention of hemorrhage Anxiety state, unspecified Esophagitis, unspecified Seasonal allergies Sleep apnea Snoring PAST SURGICAL HISTORY Procedure Laterality Date COLONOSCOPY 08/26/2023 repeat 10 years EGD 08/26/2023 EGD TRANSORAL BIOPSY SINGLE/MULTIPLE 03/03/2008 ESOPHAGOGASTRODUODENOSCOPY TRANSORAL DIAGNOSTIC 02/02/2017 EGD PAST SURGICAL HISTORY OF 2007 frx left hand, tripped and fell REMOVAL OF IMPACTED TOOTH - COMPLETELY BONY 1998 BOTH WISDOM TEETH FAMILY HISTORY Problem Relation Age of Onset Cancer Mother THYROID other (Other) Mother sleep apnea Hypertension Father other (Other) Father BIJU other (cirrhosis) Father other (fatty liver disease) Father ADD/ADHD Son ADD/ADHD Son Social History Tobacco Use Smoking status: Never Smokeless tobacco: Never Substance Use Topics Alcohol use: Yes Comment: very occasional Drug use: No Past medical history, appointments, medications, allergies reviewed. Pertinent Lab/Diagnostic Studies are reviewed and discussed today Current Outpatient Medications: omeprazole (PRILOSEC) 40 mg capsule ondansetron orally disintegrating (ZOFRAN ODT) 4 mg disintegrating tablet venlafaxine ER (EFFEXOR XR) 75 mg 24 hr capsule ferrous sulfate 325 mg (65 mg iron) tablet albuterol HFA (PROAIR HFA) 90 mcg/actuation inhaler CPAP Review of Systems CONSTITUTIONAL: No fevers, chills night sweats, unintended weight loss CARDIOVASCULAR: No chest pain, dyspnea, palpitations, orthopnea, PND, ankle edema. PULM: No dyspnea, unexplained cough. GI: No dysphagia/odynophagia, problematic reflux, constipation, diarrhea, changes in stool habits, hematochezia, melena. : No new urinary complaints, including dysuria, gross hematuria or pyuria. NEURO: No new balance problems, peripheral weakness/paresthesias or numbness of concern. Physical Exam BP 124/78 Pulse 82 LMP 10/17/2024 (Approximate) SpO2 98% General appearance: Well appearing, alert, in no acute distress, well nourished. Skin: Skin color, texture, turgor normal, no suspicious rashes or lesions Head: Normocephalic, no masses, lesions, tenderness or abnormalities Eyes: Anicteric sclera. Pupils are equally round and reactive to light. Extraocular movements are intact. Lungs:Normal breathing efforts, Lungs clear to auscultation. No wheezing, rhonchi, rales Heart: RRR without murmur, gallop, or rubs. Extremities: No deformities, edema, skin discoloration, clubbing or cyanosis. Good capillary refill. ASSESSMENT/PLAN: 1. Anxiety and depression - ICD9: 300.00, 311, ICD10: F41.9, F32.A (primary diagnosis) Take 1 and half capsules of it for 2 weeks followed by 1 capsule for 2 weeks and half a capsule for 2 weeks. - VENLAFAXINE ER 37.5 MG CAPSULE,EXTENDED RELEASE 24 HR 2. Iron deficiency - ICD9: 280.9, ICD10: E61.1 Recheck the level - COMPLETE BLOOD COUNT AND DIFFERENTIAL - IRON AND TIBC - FERRITIN - COMPLETE BLOOD COUNT 3. Thrombocythemia - ICD9: 238.71, ICD10: D75.839 - COMPLETE BLOOD COUNT. 4. Metabolic dysfunction-associated steatohepatitis (MASH) - ICD9: 571.8, ICD10: K75.81 The patient has moderate fibrosis, we will send to hepatology in the future. Hudson Barton MD Voice recognition software was used to compose this office note. Please excuse any unintended typographical errors. Allergies As of Date: 12/27/2024 Noted Allergy Reaction SULFA (SULFONAMIDE ANTIBIOTICS) 01/03/2006 8 - GI Upset BEES 03/17/2006 PENICILLINS 01/02/2006 2 - Rash 16 - Unknown TETRACYCLINE 01/02/2006 8 - GI Upset Date Reviewed: 12/27/2024 Reviewed by: Vilma Fernández LPN - Fully Assessed Reason for Visit: Medication Problem [65] Cmt: would like to go off Effexor. Orders [681] Cmt: would like labs ordered to check hemoglobin levels Primary Visit Diagnosis:Anxiety and depression [F41.9, F32.A] Other Visit Diagnoses:Iron deficiency [E61.1] Thrombocythemia [D75.839] Metabolic dysfunction-associated steatohepatitis (MASH) [K75.81] Order(s):venlafaxine ER (EFFEXOR XR) 37.5 mg 24 hr capsuleTake 2 capsules by mouth once daily.Disp: 90 capsuleRfl: 2 COMPLETE BLOOD COUNT AND DIFFERENTIAL [SQCBCDIF] Order #: [id number] FUTURE IRON AND TIBC [SQIRON] Order #: [id number] FUTURE FERRITIN [SQFERR] Order #: [id number] FUTURE COMPLETE BLOOD COUNT [SQCBC] Order #: [id number] FUTURE Prescriptions as of 12/27/2024 - venlafaxine ER (EFFEXOR XR) 37.5 mg 24 hr capsule Take 2 capsules by mouth once daily. - omeprazole (PRILOSEC) 40 mg capsule Take 1 capsule by mouth once daily. OTC - ondansetron orally disintegrating (ZOFRAN ODT) 4 mg disintegrating tablet Take 1 tablet by mouth every 6 hours as needed for nausea/vomiting. - ferrous sulfate 325 mg (65 mg iron) tablet Take 1 tablet by mouth once daily. - albuterol HFA (PROAIR HFA) 90 mcg/actuation inhaler Inhale 2 Puffs as instructed every 4 hours as needed. - CPAP Change pressures to 5-12 cm of water with humidification. Mask refitting when eligible (per patient preference) optional chin strap (if indicated) , filters, tubing, humidifier and lifetime supplies. Problem List As Of Date 12/27/2024 Noted Resolved ALLERGY SEE ALSO ALLERGIC REAC BEE STING *03/17/2006 INSOMNIA NOS [G47.00] 02/11/2007 GENERALIZED ANXIETY DIS [F41.1] 02/11/2007 ESOPHAGITIS, UNSPECIFIED [K20.90] 03/03/2008 ACUTE GASTRITIS W/O HEMORRHAGE [K29.00] 03/03/2008 BIJU (obstructive sleep apnea) [G47.33] 07/12/2019 Prescriptions ordered this encounter Disp Refills Start End VENLAFAXINE ER 37.5 MG CAPSULE,EXTEN* 90 c* 2 12/27/2024 Route: ORAL Sig: Take 2 capsules by mouth once daily. Medications Discontinued During This Encounter Prescriptions - venlafaxine ER (EFFEXOR XR) 75 mg 24 hr capsule (Discontinued) Take 1 capsule by mouth once daily. Level of Service: OFFICE/OUTPATIENT ESTABLISHED MOD [facility] 30 MIN [43325] Additional E/M codes: VISIT CPLX INHERENT EANDM ASSOC WITH MED * Encounter Status:Closed by HUDSON BARTON on 12/27/24 CNCNPATED Observed: 09/26/2024 3:15 PM Status: COMPLETED Source: [facility] Education (NUTRWS) DUNIA GARCIA ([id number]) 1970 F Date Time Provider Department 09/26/24 3:15 PM IVANNA INCHOLSON Reason for Visit: Assessment [673] Patient Education [91] Primary Visit Diagnosis:Dietary counseling [Z71.3] Other Visit Diagnoses:Nausea [R11.0] Nausea and vomiting, unspecified vomiting type [R11.2] Chronic constipation [K59.09] Order(s):CONSULT TO NUTRITION THERAPY [9001] Order #: [id number]: 4 During your visit today, we recorded the following information about you: Weight Height 99.8 kg 1.575 m Allergies As of Date: 09/26/2024 Noted Allergy Reaction SULFA (SULFONAMIDE ANTIBIOTICS) 01/03/2006 8 - GI Upset BEES 03/17/2006 PENICILLINS 01/02/2006 2 - Rash 16 - Unknown TETRACYCLINE 01/02/2006 8 - GI Upset Date Reviewed: 09/26/2024 Reviewed by: Ivanna Nicholson RD - Fully Assessed Prescriptions as of 09/27/2024 - omeprazole (PRILOSEC) 40 mg capsule Take 1 capsule by mouth once daily. OTC - ondansetron orally disintegrating (ZOFRAN ODT) 4 mg disintegrating tablet Take 1 tablet by mouth every 6 hours as needed for nausea/vomiting. - ferrous sulfate 325 mg (65 mg iron) tablet Take 1 tablet by mouth once daily. - venlafaxine ER (EFFEXOR XR) 75 mg 24 hr capsule Take 1 capsule by mouth once daily. - albuterol HFA (PROAIR HFA) 90 mcg/actuation inhaler Inhale 2 Puffs as instructed every 4 hours as needed. - CPAP Change pressures to 5-12 cm of water with humidification. Mask refitting when eligible (per patient preference) optional chin strap (if indicated) , filters, tubing, humidifier and lifetime supplies. Encounter Status:Closed by IVANNA NICHOLSON on 09/27/24 PROGRESS Observed: 09/26/2024 3:14 PM Status: COMPLETED Source: [facility] ID: [id number] Author: IVANNA NICHOLSON RD Service: ? Author Type: Registered Dietitian Type: Progress Notes Filed: 09/27/2024 08:20 Note Text: Nutrition Therapy Initial Assessment Nutrition Diagnosis: Overweight/obesity, related to, excess energy intake and physical inactivity, as evidenced by BMI above normative standard for age and gender. RECOMMENDED MALNUTRITION DIAGNOSIS: NO MALNUTRITION IDENTIFIED NUTRITION CARE PLAN Nutrition Intervention 09/26/2024: modify type and amount of food or beverage When having symptoms track intake of what has eaten before that. Consider tracking intake with trae aiming for 1500 calories Follow Mediteranean style eating. Consume whole grains (whole grain breads/cereals, oatmeal, barley, popcorn). Zxvbsdt22+ grams of fiber per day. Consume fresh/frozen fruit and vegetables (blueberries, nectarines, raspberries, apples, apricots, figs, prunes, dark leafy greens) Include a variety of deep colors) Consume lean protein (chicken, turkey breast, fish. Avoid eating red meats more than twice per month if at all. Aim for cheese and meats with 3 grams of fat or less per ounce. Dairy sources primarly low fat/nonfat yogurt and cheese. Use low fat cooking methods such as baking, broiling, roasted, and grilled Use healthy fats such as primarily olive oil, flaxseed oil, walnuts, almonds, pecans, olives and avocado but in limited amounts. Increase foods rich in omega-3 fatty acids (salmon, tuna, chamberlain, sardines, tariq) Aim for a small serving daily of Almonds/walnuts and ground flaxseed/mukund seeds (2 Tablespoons/day), seeds Read food labels. Avoid products made with partially hydrogenated fats/oils. Include a variety of spices and herbs daily (oregano, cindi, tumeric, craft, garlic, etc) Avoid sugars and refined carbs Add in regular exercise, goal is at least 30 min most days and 2-3 days of weight resistance, try youtube videos Nutrition Monitoring AND Evaluation: weight loss and identification of trigger foods Need for Follow up: 4-6 weeks Patient presents for initial MNT as relates to nausea and vomiting,constipation, unable to determine cause through testing. This started about a year ago, these symptoms have become less frequent but now can have pain every morning, must eat every 2-3 hours to help this. Also desires weight loss. Other medical issues fatty liver, BIJU uses CPaP, anemia. States high stress and multiple life events, limited time for self. Spouse present and supportive. Intake noted for eating 3 meals and 3 snacks, includes frequent higher calorie snacks. Includes both calorie free and sugar sweetened beverages. Patient's symptoms are: GI: nausea and vomiting Weight Concerns: failure to lose weight Diet History: wake; 7:30-8 Breakfast - egg in toast and grapes and blueberry belarusian muffin; Snack - occ cookie, or granola bar or abigail kisses Lunch - today skipped, had handful grapes. If have would be left overs or sandwich (pbj) on WG; water Snack - yes. Cuties, occ cookie, crackers n cheese, Dinner - 6-9 Green Deputy Brand Inspector Mediterranean now for 4 days per week; ; other days Taco [employer], Pizza, Take out Snack - lately some ice cream, occ cuties, chex mix Beverages - water, iced tea occ sweet, downs Pepsi twice per week, lemonade, juices 12 oz every other 2-3 days Alcohol- seldom, socially Vitamins/Supplements - Vera, Ashwagonda gummies, iron, To bed 11:30-12 Activity: Activities of Daily Living: varies Additional Activity: Sedentary (Little or no exercise: <1x/week) Cleaning out a house Did play pickle ball Occ using a [place] r[place] Anthropometrics: Height: Last Ht 09/26/24 : 157.5 cm (5' 2) Current weight: Last Wt 09/26/24 : 99.8 kg (220 lb) Body mass index is 40.24 kg/m?. Resting Metabolic Rate: 1564 Malnutrition Screening Significant unintentional weight loss? No Eating less than 75% of usual intake for more than 2 weeks? No Potential Signs of Inflammation: no identifiable sources Education Materials Provided: Mediterranean Diet and Inflammation READINESS TO LEARN Cognitive ability: Alert and oriented Motivation to learn: Interested Family support: High - Very involved in pt care Instruction provided to: Patient and Spouse Patient learns best by: Individual Instruction Factors affecting learning: None Physical limitations affecting learning: None Referred/Supervised by: Fuad/Elvia STORM Billing Type: Initial Assess/15 min 3 units SIGNATURE: Ivanna Nicholson RD PATIENT NAME: Dunia Garcia DATE: September 26, 2024 TIME: 3:16 PM NM GASTRIC EMPTYING SOLID Observed: 08/11 12:05 PM Status: F Source: [facility] * * *Final Report* * * DATE OF EXAM: Sep 08 2024 12:05PM MICKEY 0017 - NM GASTRIC EMPTYING SOLID / PROCEDURE REASON: multiple diagnoses * * * * Physician Interpretation * * * * EXAM: SOLID MEAL GASTRIC EMPTYING STUDY HISTORY: Nausea and vomiting, unspecified vomiting type Epigastric pain Assess for abnormal gastric emptying of a solid meal. TECHNIQUE: 1.1 millicuries of Tc-99m sulfur colloid was administered PO in a meal consisting of 4 oz Egg Beaters, 2 slices of toast, 1/2 oz jelly, and 8 oz water, consumed over 5 to 10 minutes. Planar anterior and posterior images of the gastric region were obtained at 0, 1, 2, and 4 hours after ingestion. RESULTS: Solid meal gastric retention values: * 64% retention at 1 hour (normal range, 37-90%; accelerated emptying defined as <30% at 1 hour) * 29% retention at 2 hours (normal range, <60%) * 0% retention at 4 hours (normal range, 0-10%) IMPRESSION: Normal gastric emptying rate for the solid meal. Linux Security Administrator: ELY Transcribe Date/Time: Sep 08 2024 1:39P Dictated by : VALENTE BALLESTEROS MD This examination was interpreted and the report reviewed and electronically signed by: VALENTE BALLESTEROS MD on Sep 08 2024 1:40PM EST [id number] PROGRESS Observed: 09/08/2024 7:30 AM Status: COMPLETED Source: [facility] ID: [id number] Author: QUINTON KIRKPATRICK RT(R) Service: Nuclear Medicine Author Type: Technologist Type: Progress Notes Filed: 09/08/2024 13:52 Note Text: RADIOLOGY SERVICE PROGRESS NOTE SERVICE DATE: 09/08/2024 SERVICE TIME: 07:35 AM PATIENT IDENTITY VERIFICATION COMPLETED USING TWO (2) STANDARD IDENTIFIERS: Name and Date of confirmed by patient verbally FALL SCREENING: Has the patient had 2 falls in the last year or 1 fall with injury or currently using an Ambulatory Assistive Device (Walker, Cane, Wheelchair, Crutches, etc.)? No PATIENT GENDER DATA: .female : No status: No ALLERGIES: Reviewed and unchanged MEDICATIONS REVIEWED: No PATIENT RELEVANT IMPLANT DATA REVIEWED: Not Applicable PATIENT PRESENTS WITH AN IMPLANTABLE OR ATTACHED SALES TRAINING REPRESENTATIVE: N/A CREATININE: Creatinine Date Value Ref Range Status 07/13/2024 0.75 0.58 - 0.96 mg/dL Final 03/29/2024 0.89 0.58 - 0.96 mg/dL Final 04/08/2022 0.74 0.58 - 0.96 mg/dL Final Estimated Glomerular Filtration Rate Date Value Ref Range Status 07/13/2024 96 >=60 mL/min/1.73m? Final Comment: Estimated Glomerular Filtration Rate (eGFR) is calculated using the 2020 CKD-EPI creatinine equation. This equation utilizes serum creatinine, sex, and age as parameters. The creatinine assay has traceable calibration to isotope dilution-mass spectrometry. Refer to KDIGO guidelines for clinical interpretation. In patients with unstable renal function, e.g. those with acute kidney injury, the eGFR may not accurately reflect actual GFR. P.O.C.T. RESULTS: N/A September 08, [address] PERFORMED: No IV SITE: [place] only - not applicable, oral or physician administered agents given to patient POST EXAM PIV STATUS: Not applicable PROCEDURE TYPE: NM GET: 1.1 mCi Tc99m SULFUR COLLOID was administered orally via 4 ounces of Egg Beaters, 1 pieces of toast, 1/2 ounce of jelly with 8 ounces of water orally ADMINISTRATION TIME: 07:55 PATIENT DISCHARGED TO: Ambulatory patient, left TN department area. A Diagnostic radioactive procedure has taken place, with no further precautions necessary other than routine body substance precautions. More information regarding radiation safety can be found using this link: [email or web address]%[email or web address] SIGNATURE: RT Jono(Adan) PATIENT NAME: Dunia Garcia DATE: September 08, 2024 TIME: 12:05 PM PAGER/CONTACT #: PROGRESS Observed: 08/26/2024 8:48 AM Status: COMPLETED Source: [facility] ID: [id number] Author: JOHN DOWNING APRN.CLYDE Service: ? Author Type: Nurse Practitioner Type: Progress Notes Filed: 08/26/2024 09:39 Note Text: Fibroscan Report Date performed: August 26, 2024 Performed by: Aristides Mcclendon RN Interpreted by: John Downing APRN.CNP Patient fasted 3 hours:Yes Indication: Hepatic Steatosis Technical difficulties: None. Result: The reading was adequate. Please refer to get images report for individual readings Number of readings: 10 IQR %: 252 E (kpa): 7.2 CAP: 351 Impression The liver stiffness is 7.2 kPa which corresponds to 91% chance of stage F0-F2 fibrosis. The CAP analysis showed grade S3 of liver steatosis. Stage of liver fibrosis based on above kPa: A 91% chance of stage 0-2 fibrosis A 9% chance of stage 3-4 fibrosis (advanced fibrosis) A 1.3% chance of stage 4 fibrosis (cirrhosis). A kPa >20 indicates a high likelihood of stage 4 fibrosis/cirrhosis, consider further testing to confirm and referral to hepatology. John Downing APRN.[facility] Fibroscan Fibrosis Risk <7 kPA = F0-F2 97%, F3+F4 3%, F4 <1% <10 kPA = F0-F2 91%, F3+F4 9%, F4 1.3% 10-15 kPA = F0-F2 56%, F3+F4 43%, F4 14% >15 kPA = F0-F2 26%, F3+F4 74%, F4 46% Grade CAP value up to 237 dB/M corresponds to S0 (< 10 % Fat) CAP value between (238 - 258 dB/M) corresponds to S1 (>/= 11 % Fat) CAP value between (259 - 289 dB/M) corresponds to S2 (>/= 33 % Fat) CAP value > 290dB/M corresponds to S3 (>/= 67 % Fat) stage 0 ( S0:< 10 % steatosis) stage 1 (>/= S1: 11%-33% steatosis) stage 2 (>/= S2: 34%-66% steatosis) stage 3 (>/= S3: > 66% steatosis) Reference Mane Y, Willem Q, Gilliam T, Yasmin J, Gilliam H, Fred T. Controlled attenuation parameter for assessment of hepatic steatosis grades: a diagnostic meta-analysis. Int J Clin Exp Med. 2015 Aug 15;8(10):01749-53. PMID: 40637971; PMCID: HCQ9706715. Dave Omalley, Olimpia FER, Camron-Robert M, Reba F, Elvie J, Clari O, Brandy F, Rebecca M, Negrita G, Julian A, Newton E, Mary Beth L, Yasmin G, Rosa A, [place] U, Rahman S, Rozina P, Ignaciao V, de Hali V, Charlie M, Sandra CASAS. Refining the Baveno elastography criteria for the definition of compensated advanced chronic liver disease. J Hepatol. 2020;74(5):0045-8269. doi: 10.1016/j.jhep.2020.11.050. Epub 2019Oct 17. PMID: 68723640. Kayla Omalley Ann Reynolds, Jesusita Omalley, Cierra M, Martir S, Flor Meade, Carlie Meade, Adolfo Arellano. [facility] practice guidance on the clinical assessment and management of nonalcoholic fatty liver disease. Hepatology. 2022;77(5):5951-7909. doi:10.1097/HEP.6695501648888706 SERA Observed: 08/24/2024 12:00 AM Status: COMPLETED Source: [facility] Telephone (INTMWS) DUNIA GARCIA ([id number]) 1970 F Date Time Provider Department 08/24/24 [place] INTMWS During your visit today, we recorded the following information about you: Alethea Wooten LPN 08/24/2024 11:45 AM Signed ----- Message from Morena Shahid APRN.CLYDE sent at 08/24/2024 10:56 AM EDT ----- No concerns on imaging. Possible previous colon inflammation and fatty liver. Liver can improve with low fat diet, regular exercise and weight loss. Continue with plans to see GI for further evaluation. Thank you Morena Shahid APRN.Alethea Wetzel LPN 08/24/2024 11:48 AM Signed Pt notified of results AND message from provider. Pt voiced understanding. Alethea Wooten LPN Allergies As of Date: 08/24/2024 Noted Allergy Reaction SULFA (SULFONAMIDE ANTIBIOTICS) 01/03/2006 8 - GI Upset BEES 03/17/2006 PENICILLINS 01/02/2006 2 - Rash 16 - Unknown TETRACYCLINE 01/02/2006 8 - GI Upset Date Reviewed: 08/17/2024 Reviewed by: Deanne Wagner, RT(R) - Fully Assessed Reason for Visit: Results [95] Cmt: CT Prescriptions as of 08/24/2024 - omeprazole (PRILOSEC) 40 mg capsule Take 1 capsule by mouth once daily. OTC - ondansetron orally disintegrating (ZOFRAN ODT) 4 mg disintegrating tablet Take 1 tablet by mouth every 6 hours as needed for nausea/vomiting. - ferrous sulfate 325 mg (65 mg iron) tablet Take 1 tablet by mouth once daily. - venlafaxine ER (EFFEXOR XR) 75 mg 24 hr capsule Take 1 capsule by mouth once daily. - albuterol HFA (PROAIR HFA) 90 mcg/actuation inhaler Inhale 2 Puffs as instructed every 4 hours as needed. - CPAP Change pressures to 5-12 cm of water with humidification. Mask refitting when eligible (per patient preference) optional chin strap (if indicated) , filters, tubing, humidifier and lifetime supplies. Problem List As Of Date 08/24/2024 Noted Resolved ALLERGY SEE ALSO ALLERGIC REAC BEE STING *03/17/2006 INSOMNIA NOS [G47.00] 02/11/2007 GENERALIZED ANXIETY DIS [F41.1] 02/11/2007 ESOPHAGITIS, UNSPECIFIED [K20.90] 03/03/2008 ACUTE GASTRITIS W/O HEMORRHAGE [K29.00] 03/03/2008 BIJU (obstructive sleep apnea) [G47.33] 07/12/2019 Encounter Status:Closed by ALETHEA WOOTEN on 08/24/24 CT ABD/PEL W [place] Observed: 08/18/2024 11:18 AM Status: F Source: [facility] * * *Final Report* * * DATE OF EXAM: Aug 18 2024 11:18AM [facility] 0530 - CT ABD/PEL W IVCON / PROCEDURE REASON: multiple diagnoses * * * * Physician Interpretation * * * * EXAMINATION: CT ABDOMEN AND PELVIS WITH IV CONTRAST CLINICAL HISTORY: Nausea and vomiting, epigastric pain. TECHNIQUE: CT of the abdomen and pelvis was performed using standard technique, scanning from just above the dome of the diaphragm to the symphysis pubis. MQ: CTAP_3 Contrast: IV: 100 ml of Omnipaque 300 Oral: 10 ml of Omni 240 10-25ml diluted with water CT Radiation dose: Integrated Dose-length product (DLP) for this visit = 871 mGy*cm. CT Dose Reduction Employed: Automated exposure control(AEC) and iterative recon COMPARISON: RIGHT upper quadrant ultrasound on 07/14/2024 RESULT: Liver: Hepatic steatosis. No focal hepatic lesion identified. Biliary: No bile duct dilation. Gallbladder is unremarkable. Spleen: No mass. No splenomegaly. Pancreas: No mass or duct dilation. Adrenals: No mass. Kidneys: No mass, calculus or hydronephrosis. GI tract: Small hiatal hernia. Subtle stranding in the mesenteric root without lymphadenopathy. Lymph nodes: No abdominal or pelvic lymphadenopathy. Mesentery/Peritoneum: No ascites or mass. Retroperitoneum: No mass. Vasculature: Unremarkable. Pelvis: No mass, ascites or fluid collection. Bones/Soft Tissues: Unremarkable. Lower thorax: Unremarkable. Localizer images: No additional findings. IMPRESSION: 1. Subtle stranding in the mesenteric root without lymphadenopathy. This is a nonspecific finding that can be seen with mesenteric panniculitis or prior enterocolitis. No associated worrisome lymphadenopathy or significant soft tissue component. 2. Hepatic steatosis. 3. Small hiatal hernia. Linux Security Administrator: [facility]ITAL[facility]ol[facility] Transcribe Date/Time: Aug 22 2024 8:43P Dictated by : KIMMIE ALEXANDER MD This examination was interpreted and the report reviewed and electronically signed by: KIMMIE ALEXANDER MD on Aug 22 2024 8:47PM EST [id number] PROGRESS Observed: 08/18/2024 10:40 AM Status: COMPLETED Source: [facility] HNO ID: [id number] Author: DEANNE WAGNER RT(R) Service: ? Author Type: Head Mechanic Type: Progress Notes Filed: 08/18/2024 14:29 Note Text: Radiology Service Progress Note DATE OF SERVICE: August 18, 2024 TIME: 2:28 PM PATIENT IDENTITY VERIFICATION COMPLETED USING TWO (2) STANDARD IDENTIFIERS: Name and Date of confirmed by patient verbally. FALL SCREENING: Has the patient had 2 falls in the last year or 1 fall with injury or currently using an Ambulatory Assistive Device (Walker, Cane, Wheelchair, Crutches, etc.)? No PATIENT GENDER DATA: Female. status: : No status: NO. PATIENT RELEVANT IMPLANT DATA REVIEWED: Yes PATIENT PRESENTS WITH AN IMPLANTABLE OR ATTACHED SALES TRAINING REPRESENTATIVE: No ALLERGIES: Reviewed and unchanged CONTRAST ALLERGY: NO. EXAM: CT -CONTRAST INDUCED NEPHROPATHY RISK FACTORS: Not applicable CREATININE: Creatinine Date Value Ref Range Status 07/13/2024 0.75 0.58 - 0.96 mg/dL Final 03/29/2024 0.89 0.58 - 0.96 mg/dL Final 04/08/2022 0.74 0.58 - 0.96 mg/dL Final Estimated Glomerular Filtration Rate Date Value Ref Range Status 07/13/2024 96 >=60 mL/min/1.73m? Final Comment: Estimated Glomerular Filtration Rate (eGFR) is calculated using the 2020 CKD-EPI creatinine equation. This equation utilizes serum creatinine, sex, and age as parameters. The creatinine assay has traceable calibration to isotope dilution-mass spectrometry. Refer to KDIGO guidelines for clinical interpretation. In patients with unstable renal function, e.g. those with acute kidney injury, the eGFR may not accurately reflect actual GFR. P.O.C.T. RESULTS: POC done: Yes, See Lab Tab August 18, 2024 TREATMENT: N/A PERIPHERAL IV DATA: Ambulatory: A peripheral IV was started in the Left antecubital site with a Angio cath: 22 gauge. RADIOLOGY DEPARTMENT: CT; Exam(s) Completed: Abdomen/Pelvis SIGNATURE: RT Néstor(R) PATIENT NAME: Dunia Garcia DATE: August 18, 2024 TIME: 2:28 PM ALLERGIES DATE TYPE / CODE NAME / CODE REACTION SEVERITY SOURCE 03/17/2006 Environ/9671634 06(SNOMED CT) BEES [facility] 01/03/2006 Drug Class/911059249 (SNOMED CT) SULFA (SULFONAMIDE ANTIBIOTICS) GI UPSET Med [facility] 01/02/2006 Drug Class/079835245 (SNOMED CT) PENICILLINS RASH [facility] 01/02/2006 DRUG INGREDI/2264892 03(SNOMED CT) TETRACYCLINE GI UPSET [facility] ENCOUNTERS ADMIT/DISCHARGE ACCOUNT NUMBER ADMITTING ENCOUNTER CLASS LOC ATION SOURCE 08/05/2025/ 5 [id number] [facility] 04/15/2025/ 5 [id number] Ambulatory [facility] 03/27/2025/ 5 [id number] Ambulatory [facility]WOIA [facility] 12/27/2024/ 5 [id number] Ambulatory [facility]WOLB [facility] 12/27/2024/ 5 [id number] Ambulatory [facility]WO[facility] 09/26/2024/ 4 [id number] Ambulatory [facility]WONU [facility] 09/08/2024/ 4 [id number] [facility] 08/26/2024/ 4 [id number] [facility] 08/18/2024/ 4 [id number] Ambulatory [facility]WO[facility] 08/18/2024/ 4 [id number] [facility] PAYERS ENCOUNTER GUARANTOR PAYER SUBSCRIBER SOURCE 08/05/2025 Primary Insuranc e:[facility] UMR CHOICE PLUSPolicy Number: [id number] Date:7546-30-51Qfxb Name:Jennifer Siddiqui HYACINTH: [id number] [place] [address] [facility] 04/15/2025 Primary Insuranc e:[facility] UMR CHOICE PLUSPolicy Number: [id number] Date:7237-80-92Rmnn Name:Jennifer DUNIA S HYACINTH: [id number] [place] [address] [facility] 03/27/2025 Primary Insuranc e:[facility] UMR CHOICE PLUSPolicy Number: [id number] Date:9129-41-10Yzze Name:Jennifer Siddiqui HYACINTH: [id number] [place] [address] [facility] 12/27/2024 Primary Insuranc e:[facility] UMR CHOICE PLUSPolicy Number: [id number] Date:6812-83-68Heza Name:Jennifer SOLORZANOB: [id number] [place] [address] [facility] 12/27/2024 Primary Insuranc e:[facility] UMR CHOICE PLUSPolicy Number: [id number] Date:3142-68-22Skdp Name:Jennifer GARCIAB: [id number] [place], [place] [address] [place] [address] 09/26/2024 Primary Insuranc e:[facility] UMR CHOICE PLUSPolicy Number: [id number] Date:1363-89-93Xete Name:Jennifer GARCIAB: [id number] [place], [place] [address] [place] [address] 09/08/2024 Primary Insuranc e:[facility] UMR CHOICE PLUSPolicy Number: [id number] Date:1098-06-94Okmn Name:Jennifer SOLORZANOB: [id number] [place] [address] [facility] 08/26/2024 Primary Insuranc e:[facility] UMR CHOICE PLUSPolicy Number: [id number] Date:2008-08-89Ycbl Name:Jennifer GARCIADOB: [id number] [place] [address] [facility] 08/18/2024 Primary Insuranc e:[facility] UMR CHOICE PLUSPolicy Number: [id number] Date:3831-68-18Uwzc Name:Jennifer GARCIADOB: [id number] [place] [address] [facility] 08/18/2024 Primary Insuranc e:[facility] UMR CHOICE PLUSPolicy Number: [id number] Date:0930-93-72Wpua Name:Jennifer [facility]ENCOM[facility] OF SCOTTSDALEDOB: [id number] [place] [address] [facility]
[2025-08-05 12:43] VITALS: BP 121/76; PULSE 95; RESP 16; TEMP 36.6; O2SAT 100; BMI 39.7
--- NOTE | 2025-08-05 13:47 | CT_ITS ---
PROCEDURE: ABDOMEN/PELVIS WITHOUT CONT 08/05/2025 REASON FOR EXAM: PAIN LEFT FLANK PAIN TECHNIQUE: Procedure Code: CTABDPEL Modality: CT Procedure: ABDOMEN/PELVIS WITHOUT CONT Noncontrast technique limits evaluation of the abdominal and pelvic viscera. Coronal and Sagittal reconstruction series were provided. One or more dose reduction techniques were used (e.g., Automated exposure control, adjustment of the mA and/or kV according to patient size, use of iterative reconstruction technique). RADIATION DOSE SUMMARY: DLP: 884.35 mGycm COMPARISON: None available. FINDINGS: Lung bases: The lung bases are clear. No pleural effusions. Liver: Hepatomegaly. Hepatic steatosis. Gallbladder: Unremarkable. No biliary ductal dilatation. Spleen: Unremarkable. 1.1 x 0.8 cm splenule anterior inferior to the spleen. Pancreas: Unremarkable. Adrenals: Unremarkable. Kidneys: Normal in size. Normal morphology. Focal dilatation of a left extrarenal pelvis. No nephroureterolithiasis or hydronephrosis. Incompletely characterized left renal hypodensity measuring a proximally 2.3 x 2.6 cm which may reflect a renal cyst. Bladder: Unremarkable. Bowel: The small and large bowel are normal in caliber. No evidence of small bowel obstruction. There are a few colonic diverticula. Appendix: Unremarkable. Lymph nodes: No lymphadenopathy. Vasculature: No abdominal aortic aneurysm. Scattered atherosclerotic calcification of the abdominal aorta. Peritoneum / Retroperitoneum: Focal mesenteric fat stranding in the left upper quadrant adjacent to the proximal descending colon (series 2, image 49). No ascites. Small fat containing umbilical hernia. Reproductive Organs: Limited evaluation on CT. The uterus is present. Bones: No aggressive osseous lesions. CT/Abdomen/Pelvis without Cont IMPRESSION: Lack of contrast limits evaluation. 1. Focal inflammatory changes of mesenteric fat adjacent to the proximal descen ding colon of unknown etiology. Differential includes epiploic appendagitis versus infectious etiology. 2. Hepatomegaly and hepatic steatosis. 3. Additional findings as discussed above. Reading Location: [id number]
--- NOTE | 2025-08-05 13:48 | ED.VIS.GI ---
HPI HPI - GI History of Present Illness Chief Complaint: Abd Pain Detail of Chief Complaint: Left flank pain about 6 PM last night. Informant: patient Abdominal Pain/Flank Pain Onset: Today, Yesterday and Hours Context: Sudden Onset Timing: Continuous Quality: Sharp and Stabbing Location: Left Flank Current Severity: Mild Maximum Severity: Moderate Worsened by: Movement Relieved by: Nothing Nausea/Vomiting/Emesis GI Symptom: Negative for Nausea or Vomiting Diarrhea/Melena/Hematochezia GI Symptom: Negative for Diarrhea, Melena or Hematochezia Associated Symptoms Associated Symptoms: Negative for Dysuria, Frequency, Hematuria or Urgency Narrative Narrative: 55-year-old female no significant past medical history of the reflux. Complaint left flank pain that began last night around 6 PM. Denies nausea, vomiting or diarrhea. No fever or chills. No dysuria or hematuria. Denies any trauma. No history of kidney stones. No prior pain like this before. Denies any prior abdominal surgeries. Prior similar symptoms: No Recent Illness/Hospitalization: No PFSH PFSH Medical History Depression Normal colonoscopy Home Medications ?Medication ?Instructions ?Recorded ?Last Taken ?Type DR POLANCO'S SINUS HERBAL 1 tab PO DAILY 08/05/25 08/04/25 History omeprazole 40 mg capsule,delayed 40 mg PO DAILY 08/05/25 08/05/25 History release Allergy/AdvReac Type Severity Reaction Status Date / Time bee venom protein (honey bee) Allergy Severe Anaphylaxis Verified 08/05/25 12:43 Penicillins Allergy Unknown PT UNABLE Verified 08/05/25 12:43 TO RESPOND-NEEDS F/U tetracycline Allergy Unknown NEEDS Verified 08/05/25 12:43 FOLLOW-UP Sulfa (Sulfonamide AdvReac Vomiting Verified 08/05/25 12:43 Antibiotics) Family History Father Asthma CVA (cerebral vascular accident) Hypertension Kidney disease Mother Myocardial infarction Thyroid disorder Skin cancer Other Cancer Social History adopted: Yes household members: spouse number of children: 2 current occupational status: employed current occupation: [employer] pets and animals: Yes pets and animals: dog(s) sexually active: Yes Smoking Status: Never smoker second hand exposure: No alcohol intake: current substance use type: does not use seatbelt use: always do you feel safe at home: Yes additional social history: , [place] ROS ROS ED ROS Narrative Left flank pain. Denies nausea vomiting or diarrhea. Denies dysuria or hematuria. Denies fever or chills. Constitutional Constitutional ED: Denies chills or fever(s) ENT ENT ED: Denies ear pain Cardiovascular Cardiovascular: Denies chest pain or palpitations Respiratory/Chest Respiratory/Chest: Denies cough, dyspnea or dyspnea on exertion Gastrointestinal Gastrointestinal: Reports abdominal pain; Denies constipation, diarrhea, melena, nausea or vomiting Genitourinary Genitourinary ED: Denies dysuria, hematuria or urinary frequency Musculoskeletal Musculoskeletal: Denies arthralgias or back pain Integumentary Denies abscess or Abrasions Neurologic Neurologic: Denies headache(s) Psychiatric Psychiatric: Denies anxiety Endocrine Endocrinology: Denies polydipsia Hematologic/Lymphatic Hematologic/Lymphatic: Denies easy bleeding Allergic/Immunologic Allergic/Immunologic ED: Denies mouth swelling, tongue swelling or urticaria EXAM Physical Exam Narrative Exam Narrative: Well-appearing 55-year-old female. Vital signs stable afebrile. H EENT exam pupils round react light. Moist mucous membranes. Neck nontender JVD. Lungs clear to auscultation bilaterally. Heart regular rhythm no murmur. Rate about 90. Chest wall and ribs nontender. No ecchymosis or bruising. No crepitus or subcu air. Back nontender. Abdomen soft nondistended normal bowel sounds without peritoneal signs. Mild left flank tenderness just below the ribs on the left lateral area around the mid axillary line. No bruising. No rashes or shingles. Normal appearance. Pelvic girdle intact. Moving all 4 extremities. Normal range of motion. Normal strength. Neurologically patient is awake alert. Answer questions following commands. Const Vital Signs: 08/05/25 12:43 08/05/25 14:43 Temperature 97.9 F Temperature Source Oral Pulse Rate 95 Respiratory Rate 16 Blood Pressure 121/76 H 117/76 Blood Pressure Mean 91 89 Pulse Ox 100 Oxygen Delivery Method Room Air Positive well nourished and well developed; Negative for cachectic, contractures or unkempt General Appearance ED: well developed and NAD; Negative for unkempt, cachectic, contractures or pallor Nutritional Appearance: Negative for cachectic HEENT Reports moist mucous membranes normocephalic and atraumatic Eyes PERRL and EOMs intact bilaterally General Eye ED: Negative for pale conjunctiva or scleral icterus Neck no lymphadenopathy, supple and no JVD Resp normal respiratory effort and clear to auscultation bilaterally Cardio regular rate, regular rhythm, S1 normal heart sound, S2 normal heart sound and no murmurs GI non-tender, non-distended and no masses GI Narrative: Mild left flank tenderness just below the left lower lateral rib cage. No ecchymosis or bruising. No subcu air or crepitance. The anterior abdomen is completely nontender without peritoneal signs. No right upper or right lower quadrant tenderness. No hernia or mass. No obstruction. Inspection: Negative for abdominal distention Auscultation: normoactive bowel sounds Palpation: soft; Negative for tender or guarding Back/Spine no CVA tenderness General Back: Negative for CVA tenderness Cervical Spine: Negative for cervical spine tenderness Thoracic Spine / Upper Back: Negative for thoracic spinal tenderness Lumbar Spine / Lower Back: Negative for lumbar spinal tenderness Extremity full ROM General Extremety ED: Negative for edema or tenderness General Extremity: Negative for edema Neuro CN's II-XII intact bilaterally and moves all extremities Sensorium / Orientation: alert, oriented to person, oriented to place and oriented to time Motor Exam: strength 5/5 throughout Psych mental status grossly normal and thought process normal Appearance: Negative for unkempt Skin no wounds General Skin Exam: Negative for jaundice or pallor Lesions: no lesions Rashes: no rashes MDM MDM MDM Narrative Medical decision making narrative: 55-year-old female left flank pain. Could be musculoskeletal could be a kidney stone versus other etiologies. CAT scan and labs are being obtained. She is not having any urinary symptoms I do not think it is a UTI. She did not want a thing for pain she is not having any nausea either. Repeat exam patient is doing well at 3:22 PM. We went over her test results. We are awaiting the CAT scan results. Patient doing well at 4:07 PM. CAT scan shows some mild inflammation of the proximal descending colon. She be started on anti-inflammatories and Tylenol. Follow-up with her primary care physician not improving. She will not be started on antibiotics at this time. A urine culture also be sent. History & Record Review Discussion w/independent historian: Patient and Family Lab Data Attestation: I reviewed the patient's lab results. Lab results narrative: CBC shows a white count of 5.8. H&H 11.9 and 37. Platelets 362. Electrolytes show gap 12. Normal BUN of 9 creatinine 0.7. Glucose 98. Lipase normal at 17. Serum test negative. Urinalysis shows no nitrates. 0 red cells. 5-10 white cells. 1+ bacteria. Labs: Laboratory Results - last 24 hr 08/05/25 13:54 WBC 5.8 RBC 4.60 Hgb 11.9 L Hct 37.1 MCV 80.7 L MCH 25.9 L MCHC 32.1 RDW Std Deviation 41.7 RDW Coeff of Jayashree 14.3 Plt Count 362 MPV 9.2 Immature Gran % (Auto) 0.200 Neut % (Auto) 74.6 H Lymph % (Auto) 12.2 L [place] % (Auto) 9.5 Eos % (Auto) 2.6 Baso % (Auto) 0.9 Absolute Neuts (auto) 4.3 Absolute Lymphs (auto) 0.71 L Nucleated RBC % 0 Sodium 139 Potassium 4.2 Chloride 103 Carbon Dioxide 24.1 Anion Gap 12 BUN 9 Creatinine 0.79 Estim Creat Clear Calc 90.39 Est GFR (MDRD) Non-Af 90 BUN/Creatinine Ratio 11.6 Glucose 98 Calcium 9.6 Lipase 17 Serum , Qual NEGATIVE Urine Color Yellow Urine Clarity Cloudy Urine pH 6.0 Ur Specific [facility] 1.010 Urine Protein 15 H Urine Glucose (UA) Normal Urine Ketones Negative Urine Occult Blood 10 H Urine Nitrite Negative Urine Bilirubin Negative Urine Urobilinogen Normal Ur Leukocyte Esterase 100 H Urine RBC 0 SEEN Urine WBC 5-10 SEEN Ur Squamous Epith Cells 0-5 SEEN Urine Bacteria 1+ Urine Mucus RARE Radiography Diagnostic Testing: Clinical Impression(s) from Imaging Studies Abdomen/Pelvis CT 08/05/25 13:47 IMPRESSION: Lack of contrast limits evaluation. 1. Focal inflammatory changes of mesenteric fat adjacent to the proximal descending colon of unknown etiology. Differential includes epiploic appendagitis versus infectious etiology. 2. Hepatomegaly and hepatic steatosis. 3. Additional findings as discussed above. Reading Location: [id number] Discharge Plan Triage Chief Complaint: Abd Pain ED Provider: Salty Pike Dx/Rx/DC Orders Clinical Impression: Acute flank pain Instructions: ED Flank Pain with Uncertain Cause Prescriptions: No Action omeprazole 40 mg capsule,delayed release(DR/EC) [address] POLANCO'S SINUS HERBAL tablet 1 tab PO DAILY Primary Care Provider: Connie Boss Referrals: Connie Boss MD [Primary Care Provider, Internal Medicine] - 3-5 Days if not improving Activity Restrictions/Additional Instructions: CAT scan shows some mild inflammation of your proximal descending colon. No need for antibiotics at this time. Motrin for pain and inflammation and Tylenol. Follow-up with your doctor if not improving. Print Language: Azeri Disposition Disposition: Home, Self Care
[2025-08-05 14:03] LABS: Red Blood Cells-Urine 0 SEEN /hpf (0-5)
[2025-08-05 14:05] LABS: Color, Urine Yellow (Yellow); Glucose, Dipstick Normal (Normal); Ketone-Dipstick Negative (Negative); Leukocyte Esterase-Dipstick 100 /ul (Negative); Nitrite-Dipstick Negative (Negative); Occult Blood-Urine 10 /ul (Negative); Protein-Dipstick 15 mg/dl (Negative); Specific Gravity, Urine 1.010 (1.002-1.030); Urine Bilirubin Dipstick Negative (Negative)
[2025-08-05 14:06] LABS: Hematocrit 37.1 % (37-47); Hemoglobin 11.9 g/dL (12.0-15.0); Immature Granulocytes Count 0.010 X10^3/uL (0.0-0.0); Mean Corp Hgb Conc 32.1 g/dL (32-36); Mean Corpuscular Volume 80.7 fL (81-99); Mean Platelet Vol. 9.2 fl (6.2-12.0); NRBC Flagged by Analyzer 0 % (0-5); Platelet Count 362 K/mm3 (150-450); RBC Distribution Width CV 14.3 % (11.6-14.6); RBC Distribution Width SD 41.7 fl (35.1-43.9); Red Blood Count 4.60 M/mm3 (4.2-5.4); White Blood Count 5.8 K/mm3 (4.4-11.0)
[2025-08-05 14:11] LABS: Mucous, Urine RARE /hpf (<or=2+); Squamous Epithelial Cells - UA 0-5 SEEN /hpf (5-10)
[2025-08-05 14:17] LABS: Internal QC Validated? YES +Cl - CLEAR BKGD; Pregnancy, Serum, hCG Quali. NEGATIVE Negative
[2025-08-05 14:18] LABS: Record Kit Lot#, Serum Preg. 0000964736
[2025-08-05 14:24] LABS: Anion Gap 12 (5-15); BUN 9 mg/dL (4-19); BUN/Creat Ratio 11.6 RATIO (10-20); Calcium,Total 9.6 mg/dL (7.6-11.0); Carbon Dioxide 24.1 mmol/L (21.0-32.0); Chloride 103 mmol/L (98-108); Estimated Creatinine Clearance 90.39 ml/min (50-250); Glucose 98 mg/dL (70-99); Lipase 17 U/L (13-75); Potassium 4.2 mmol/L (3.3-5.1)
[2025-08-05 14:43] VITALS: BP 117/76
[2025-08-05 16:00] VITALS: BP 128/79; PULSE 78; RESP 12; TEMP 36.8; O2SAT 98
[2025-08-05 16:20] VITALS: BP 128/79; PULSE 78; RESP 12; TEMP 36.8; O2SAT 98
== END 2025-08-05 16:20 | disposition home or self-care (01) ==
PROVIDERS: Emergency Provider Emergency Medicine; PCP Internal Medicine; Visit Provider Emergency Medicine
DX: R10.9 Unspecified abdominal pain (principal)
CPT/HCPCS: 74176; 80048; 81001; 83690; 84703; 85025; 87077; 87086; 87088; 99283; A4216